=== PATIENT | male | born 1975 | race Caucasian/White ===

== ENCOUNTER 2020-12-22 05:57 | Inpatient (IN) | payer MEDICAID ==
[~2020-12-22] VITALS: Ht 180.3 cm; Wt 69.9 kg
[2020-12-22] VITALS (45 sets, daily range): BP systolic 86–153; BP diastolic 47–97
--- NOTE | 2020-12-22 08:20 | NUR ---
chart review. pt new admit from [facility], covid +. ct scan and surgery consult rt possible acute appendix. he on vent, unable to visit with him. will cont following as needed for dc needs. discussed during am rounds
[2020-12-22 08:59] LABS: ABSOLUTE NEUTROPHILS 18.7 thou/uL (1.4-8.2); BASOPHILS 0.1 % (0.0-2.0); HEMOGLOBIN 13.2 gm/dL (14.0-18.0); LYMPHOCYTES 3.2 % (24.0-44.0); MCH 30.5 pg (26.0-34.0); MCHC 33.9 g/dL (28.0-37.0); MCV 89.7 fL (80.0-100.0); MONOCYTES 1.7 % (1.0-8.0); PLATELET COUNT 406 thou/uL (150-400); RBC 4.35 mil/uL (4.50-6.00); RDW 13.3 % (10.5-14.5); WBC 19.7 thou/uL (4.0-11.0)
[2020-12-22 09:04] LABS: BE(vivo) -6.9 mmol/L (-2 to +3); HCO3 21.9 mmol/L (22.0-26.0); PCO2 57.3 mmHg (35.0-45.0); PO2 83.8 mmHg (80.0-100.0); pH 7.201 (7.360-7.450); sO2 93.8 % (92.0-98.0)
[2020-12-22 09:17] LABS: CALCIUM 7.3 mg/dL (8.5-10.1); CREATININE 1.6 mg/dL (0.7-1.3); POTASSIUM 4.5 mmol/L (3.5-5.1)
[2020-12-22 09:23] LABS: ALBUMIN 2.1 g/dL (3.4-5.0); TOTAL BILIRUBIN 0.7 mg/dL (0.2-1.0); TOTAL PROTEIN 6.4 g/dL (6.4-8.2)
[2020-12-22 09:35] LABS: APTT 36.5 Seconds (24.5-32.8); INR 1.03; PROTIME 11.2 Seconds (9.3-11.4)
--- NOTE | 2020-12-22 11:19 | NUR ---
PT ARRIVED TO THE UNIT VIA EMS FROM [facility] ACCOMPANIED BY EMS WORKERS. PT WAS DIAPHORETIC UPON ARRIVAL, STILL CONTINUING TO BE SO, ARRIVED ON 6MEQ OF POTASSIUM, WHICH IS OFF NOW PER pH AND POTASSIUM LEVEL, AND 5 OF LEVO, WHICH HAS BEEN RESTARTED UNDER [facility] AND RUNNING AT 1. TWO BELONGINGS BAG PRESENT W/ PT, RN HAS NOT SORTED THROUGH IT IS NOT PRIORITY AT THIS TIME. FAMILY MEMBER LEE YULIANA RN PROVIDED UPDATES REGARDING STARTING SEPSIS PROTOCOL AND GENERAL SURGERY CONSULT. PT SEEN BY // - PER MD HERNANDEZ, PT TO GO TO SURGERY SOMETIME TODAY. PROCALCITONIN IS HIGH AT THIS TIME. CVP HAS BEEN STARTED, ABX TX INITIATED WELL. CURRENTLY ON AC24 VT450 PEEP10 100%FIO2 PER [facility]ANNER SHRUTI WANG'S NOTES, PT INTUBATED THEN CENTRAL LINE/OGT/ETT VERIFIED AT 0558 THERE. RN WILL UPDATE NEEDED
[2020-12-22 15:07] LABS: CALCIUM 7.3 mg/dL (8.5-10.1); CREATININE 1.4 mg/dL (0.7-1.3); POTASSIUM 4.1 mmol/L (3.5-5.1)
[2020-12-22 16:00] LABS: BE(vivo) -5.1 mmol/L (-2 to +3); HCO3 21.6 mmol/L (22.0-26.0); PCO2 46.4 mmHg (35.0-45.0); PO2 152.6 mmHg (80.0-100.0); sO2 98.7 % (92.0-98.0)
[2020-12-22 16:01] LABS: pH 7.285 (7.360-7.450)
[2020-12-22 18:16] LABS: URINE BILIRUBIN NEGATIVE (Negative); URINE BLOOD NEGATIVE (Negative); URINE CLARITY CLEAR; URINE COLOR YELLOW; URINE GLUCOSE-RANDOM* NEGATIVE (Negative); URINE KETONES NEGATIVE (Negative); URINE LEUKOCYTES-REFLEX NEGATIVE (Negative); URINE NITRITE-REFLEX NEGATIVE (Negative); URINE PROTEIN (DIPSTICK) 1+ (Negative); URINE SPECIFIC GRAVITY >= 1.030 (1.005-1.035); URINE UROBILINOGEN 0.2 E.U./dl (0.2-1.0)
[2020-12-22 18:22] LABS: SQUAMOUS None Seen /LPF (0-3)
[2020-12-22 18:23] LABS: BACTERIA-REFLEX 1-9 Few /HPF (None Seen); CASTS None Seen /LPF (None Seen); CRYSTALS None Seen /LPF (None Seen); URINE RBC None Seen /HPF (NONE SEEN); URINE WBC-REFLEX 0-5 Rare /HPF (0-5)
[2020-12-22 18:32] LABS: CALCIUM 7.7 mg/dL (8.5-10.1); CREATININE 1.4 mg/dL (0.7-1.3)
[2020-12-22 21:57] LABS: CALCIUM 7.6 mg/dL (8.5-10.1); CREATININE 1.3 mg/dL (0.7-1.3); POTASSIUM 3.8 mmol/L (3.5-5.1)
[2020-12-23] VITALS (7 sets, daily range): BP systolic 87–129; BP diastolic 49–90
[2020-12-23 04:26] LABS: DIRECT BILIRUBIN 1.6 mg/dL (<0.1-0.2); PHOSPHORUS 3.4 mg/dL (2.5-4.9)
[2020-12-23 04:30] LABS: ALBUMIN 1.8 g/dL (3.4-5.0); CALCIUM 7.7 mg/dL (8.5-10.1); CREATININE 1.3 mg/dL (0.7-1.3); POTASSIUM 3.7 mmol/L (3.5-5.1); TOTAL BILIRUBIN 1.8 mg/dL (0.2-1.0); TOTAL PROTEIN 6.1 g/dL (6.4-8.2)
[2020-12-23 04:37] LABS: ABSOLUTE NEUTROPHILS 14.8 thou/uL (1.4-8.2); BASOPHILS 0.2 % (0.0-2.0); HEMATOCRIT 35.1 % (42.0-52.0); HEMOGLOBIN 11.8 gm/dL (14.0-18.0); LYMPHOCYTES 3.3 % (24.0-44.0); MCH 30.2 pg (26.0-34.0); MCHC 33.6 g/dL (28.0-37.0); MCV 89.8 fL (80.0-100.0); MONOCYTES 2.9 % (1.0-8.0); PLATELET COUNT 410 thou/uL (150-400); POLYS 93.6 % (36.0-66.0); RBC 3.91 mil/uL (4.50-6.00); RDW 13.7 % (10.5-14.5); WBC 15.8 thou/uL (4.0-11.0)
[2020-12-23 04:47] LABS: FIBRINOGEN > 860 mg/dL (210-360); INR 1.09; PROTIME 11.8 Seconds (9.3-11.4)
[2020-12-23 07:09] LABS: HIV ANTIBODY Non Reactive (Non Reactive)
[2020-12-23 07:47] LABS: BE(vivo) -3.5 mmol/L (-2 to +3); HCO3 21.5 mmol/L (22.0-26.0); PCO2 38.6 mmHg (35.0-45.0); pH 7.363 (7.360-7.450); sO2 96.7 % (92.0-98.0)
[2020-12-23 09:40] LABS: CREATININE 1.2 mg/dL (0.7-1.3); POTASSIUM 3.5 mmol/L (3.5-5.1)
--- NOTE | 2020-12-23 15:10 | NUR ---
PT ADMITTED RELATED TO ACUTE APPENDICITIS, RESPIRATORY FAILURE. PT WAS TRANSFERED FROM [facility]. PT IS INTUBATED AND SEDATED. PT UNDERWENT LAP APPENDECTOMY AND NOW HAS KIARRA DRAIN IN PLACE. PT IS ON IV ZOSYN. CM CALLED AND SPOKE WITH PT'S GIRLFRIEND SIMRAN ROMAN . SHE INDICATED THAT SHE IS HIS GF AND MOTHER OF THEIR TWO YOUND CHILDREN ALMOST 2 AND 4 MONTHS. SHE INDICATED THEY RESIDE IN A 3RD FLOOR APARTMENT WITH 2 FLIGHTS OF STEPS TO ENTER. SHE INDCATED THAT PT HAD BEEN INDEPDENENT WITH GAIT AND ADLS LAB AIDE. SHE INDICATED THAT PT IS CURRENTLY UNEMPLOYED WITH NO PCP OR INSURANCE. SHE INDICATED THAT PT'S BROTHER KRISTAN SHOULD BE ABLE TO GET MEDICAL INFO RELATED TO PT BUT THAT SHE DOESN'T HAVE HIS PHONE NUMBER. SHE STATED THAT PT'S FATHER RECENTLY PASSED AND THAT PT'S MOTHER IN IN A FACILITY WITH COGNITIVE IMPAITMENT. KRISTAN IS PT'S MOTHER'S DPOA. CM FOLLOWING REGARDING DC PLANNING.
--- NOTE | 2020-12-23 18:06 | PATH ---
[facility] [address] [place] [address] PATHOLOGY RPT PROCEDURE Name: BARTOLOME RAHMAN Room #: 240-P ADM IN M.R.#: [id number] Admission: 12/22/20 Date of : 79 Discharge: Report #: [id number] Path Case #: [id number] [facility] Accession Number: [id number] . 01 Material submitted: . appendix - APPENDIX . 01 Clinical history: . COVID APPENDICITIS LAPAROSCOPIC APPENDECTOMY POST-OP DIAGNOSIS SAME PRE-OP DIAGNOSIS . 02 Diagnosis: Appendix, appendectomy: - Marked acute/purulent appendicitis associated with acute serositis. ([facility]; 12/23/2020) QMS 12/23/2020 1340 Local . 02 Electronically signed: . Yuliya Skinner MD, Pathologist NPI- [id number] . 01 Gross description: . Fixative: Formalin Labeled: "Bartolome Rahman and appendix". Appendix length: 6.0cm Appendix diameter: 0.4-0.6 cm Mesoappendix: 0.2 cm Proximal margin: 0.6 cm Serosa: Previously open mottled lama-brown with adherent white-yellow purulent material Mucosa: Mottled lama-brown Fecal material: Loose to compact lama-brown Cut surface: Mottled lama-brown Luminal diameter: 0.6 cm Perforation: Not present Lesions/abnormalities: Mottled lama-brown cut surfaces A1-Proximal margin (inked red) and entire distal tip, bisected A2- Mid appendix (3 random sections) ([facility]; 12/22/2020) [facility] 12/23/2020 1339 Local . 02 Pathologist provided ICD-10: K35.80, K65.8 . 02 CPT . [address] [address] PATHOLOGY RPT PROCEDURE Name: BARTOLOME RAHMAN Room #: 240-P [facility] IN .R.#: [id number] Admission: 12/22/20 Date of : 79 Discharge: Report #: [id number] Path Case #: [id number] Specimen Comment: A courtesy copy of this report has been sent to [phone] Specimen Comment: [phone] Specimen Comment: Report sent to / DR TROTTER Performed at: 01 [facility] [address], [place], [place] [id number] MD Tolu Garcia MD Phone: [phone] Performed at: [address] [id number] MD Yuliya Skinner MD Phone: [phone]
[2020-12-24] VITALS (26 sets, daily range): BP systolic 100–156; BP diastolic 60–97
--- NOTE | 2020-12-24 01:25 | NUR ---
PT VOMITED AT APPROX 0030 AND 0120 WITH AGITATION AND COUGHING. VOMIT CONSISTED OF TUBE FEED LIKE LIQUID. PATIENT IN LINE SUCTIONED IMMEDIATELY AFTER VOMITING EPISODE. NO SECRETRIONS NOTED. TF STOPPED AT APPROX 0100 AND PATIENT PLACED TO LIS.
[2020-12-24 05:11] LABS: HEMATOCRIT 36.7 % (42.0-52.0); HEMOGLOBIN 12.4 gm/dL (14.0-18.0); MCH 31.1 pg (26.0-34.0); MCHC 33.8 g/dL (28.0-37.0); MCV 92.1 fL (80.0-100.0); PLATELET COUNT 480 thou/uL (150-400); RBC 3.98 mil/uL (4.50-6.00); RDW 13.9 % (10.5-14.5); WBC 19.9 thou/uL (4.0-11.0)
[2020-12-24 05:15] LABS: D-DIMER 33.98 ug/mLFEU (0.19-0.50); FIBRINOGEN > 860 mg/dL (201-437); PROTIME 10.9 Seconds (10.5-12.1)
[2020-12-24 05:26] LABS: DIRECT BILIRUBIN 1.7 mg/dL (<0.1-0.2); PHOSPHORUS 3.1 mg/dL (2.5-4.9)
[2020-12-24 05:41] LABS: ALBUMIN 1.9 g/dL (3.4-5.0); CALCIUM 8.1 mg/dL (8.5-10.1); CREATININE 1.4 mg/dL (0.7-1.3); POTASSIUM 4.2 mmol/L (3.5-5.1); TOTAL BILIRUBIN 2.2 mg/dL (0.2-1.0); TOTAL PROTEIN 6.6 g/dL (6.4-8.2)
[2020-12-24 05:53] LABS: BE(vivo) -3.1 mmol/L (-2 to +3); HCO3 22.5 mmol/L (22.0-26.0); PCO2 42.4 mmHg (35.0-45.0); PO2 66.2 mmHg (80.0-100.0); pH 7.343 (7.360-7.450); sO2 92.1 % (92.0-98.0)
[2020-12-24 06:42] LABS: ABSOLUTE NEUTROPHILS 19.1 thou/uL (1.4-8.2)
[2020-12-24 06:43] LABS: ANISOCYTOSIS 1+; PLATELET ESTIMATE INCREASED; POIKILOCYTOSIS 1+
[2020-12-24 11:17] LABS: CALCIUM 7.9 mg/dL (8.5-10.1); CREATININE 1.3 mg/dL (0.7-1.3); POTASSIUM 4.6 mmol/L (3.5-5.1)
--- NOTE | 2020-12-24 19:24 | NUR ---
ASSUMED CARE 0700..0745 PT RESTLESS, AGITATED ATTEMPTING TO PULL SELF OUT OF BED. PRN FENT GIVEN Q2 THROUGHOUT SHIFT FOR AGITATION. 02 DESAT THROUGH AM FI02, AND PEEP INCREASED. HERI FRANCIS. RR INCRESED THROUGHOUT SHIFT, APPEARED IMPROVED W/PRN FENTANYL. DC PROPOFOL AND TITRATED, VERSED ADDED AND TITRATED. 1800 NOTICED PT BECOMING MORE DIAPHORETIC, TEMP 102. DR. SERGO FRANCIS. ATTEMPTED TO PAGE ID FOR FEVER.. DISCONNECTED W/ANSWERING SERVICE. PT NOT PROGRESSING IN PLAN OF CARE.
[2020-12-25] VITALS (23 sets, daily range): BP systolic 90–128; BP diastolic 50–86
[2020-12-25 01:51] LABS: URINE BILIRUBIN NEGATIVE (Negative); URINE BLOOD TRACE (Negative); URINE CLARITY CLOUDY; URINE COLOR ORANGE; URINE GLUCOSE-RANDOM* NEGATIVE (Negative); URINE KETONES NEGATIVE (Negative); URINE LEUKOCYTES-REFLEX NEGATIVE (Negative); URINE NITRITE-REFLEX NEGATIVE (Negative); URINE PROTEIN (DIPSTICK) 3+ (Negative); URINE SPECIFIC GRAVITY >= 1.030 (1.005-1.035)
[2020-12-25 02:00] LABS: BACTERIA-REFLEX 1-9 Few /HPF (None Seen); COARSE GRANULAR CASTS 4-10 Moderate /LPF (None Seen); CRYSTALS None Seen /LPF (None Seen); FINE GRANULAR CASTS 0-3 Few /LPF (None Seen); MUCUS 0-3 Light strn/LPF (None Seen); SQUAMOUS 0-3 Few /LPF (0-3); URINE RBC 1-2 Rare /HPF (NONE SEEN); URINE WBC-REFLEX 0-5 Rare /HPF (0-5)
[2020-12-25 03:34] LABS: ABSOLUTE NEUTROPHILS 13.5 thou/uL (1.4-8.2); BASOPHILS 0.8 % (0.0-2.0); EOSINOPHILS 0.2 % (0.0-3.0); HEMATOCRIT 35.5 % (42.0-52.0); HEMOGLOBIN 11.7 gm/dL (14.0-18.0); LYMPHOCYTES 3.4 % (24.0-44.0); MCH 31.9 pg (26.0-34.0); MCHC 32.8 g/dL (28.0-37.0); MONOCYTES 3.9 % (1.0-8.0); POLYS 91.7 % (36.0-66.0); RBC 3.66 mil/uL (4.50-6.00); RDW 14.6 % (10.5-14.5); WBC 14.7 thou/uL (4.0-11.0)
[2020-12-25 03:43] LABS: ALBUMIN 1.7 g/dL (3.4-5.0); CALCIUM 7.9 mg/dL (8.5-10.1); CREATININE 1.7 mg/dL (0.7-1.3); TOTAL BILIRUBIN 2.1 mg/dL (0.2-1.0); TOTAL PROTEIN 5.9 g/dL (6.4-8.2)
[2020-12-25 04:05] LABS: POTASSIUM 5.7 mmol/L (3.5-5.1)
[2020-12-25 04:14] LABS: MCV 97.1 fL (80.0-100.0); PLATELET COUNT 224 thou/uL (150-400)
[2020-12-25 05:43] LABS: BE(vivo) -3.4 mmol/L (-2 to +3); HCO3 23.4 mmol/L (22.0-26.0); PO2 102.8 mmHg (80.0-100.0); sO2 97.1 % (92.0-98.0)
[2020-12-25 05:45] LABS: pH 7.296 (7.360-7.450)
--- NOTE | 2020-12-25 18:41 | NUR ---
ASSUMED CARE AT 0700. VENT WEANING BY RT. FIO2 WEANED FROM 100% TO 50%. PEEP WEANED FROM 14 TO 10. AGITATION AND TACHYPNEA DURING ORAL CARE AND POSITION CHANGES. 150 MLS OUT OF KIARRA DRAIN. NG REMAINS TO LIS WITH 100 MLS OUT. VITAL SIGNS STABLE. GIRLFRIEND TOLD NOC SHIFT NURSE THAT PATIENT IS METH USER. SIGNIFICANT OTHER SIMRAN UPDATED OVER THE PHONE THIS MORNING AND AFTERNOON. BROTHER UPDATED OVER THE PHONE.
[2020-12-25 19:11] LABS: BE(vivo) 0.6 mmol/L (-2 to +3); HCO3 25.9 mmol/L (22.0-26.0); PO2 79.1 mmHg (80.0-100.0); pH 7.388 (7.360-7.450); sO2 95.5 % (92.0-98.0)
[2020-12-26] VITALS (30 sets, daily range): BP systolic 124–176; BP diastolic 86–119
[2020-12-26 04:21] LABS: BE(vivo) -1.2 mmol/L (-2 to +3); HCO3 23.5 mmol/L (22.0-26.0); PCO2 39.6 mmHg (35.0-45.0); PO2 92.1 mmHg (80.0-100.0); pH 7.392 (7.360-7.450)
[2020-12-26 06:40] LABS: ALBUMIN 1.6 g/dL (3.4-5.0); CALCIUM 7.7 mg/dL (8.5-10.1); CREATININE 1.7 mg/dL (0.7-1.3); DIRECT BILIRUBIN 2.2 mg/dL (<0.1-0.2); POTASSIUM 4.9 mmol/L (3.5-5.1); TOTAL BILIRUBIN 2.7 mg/dL (0.2-1.0); TOTAL PROTEIN 5.8 g/dL (6.4-8.2)
--- NOTE | 2020-12-26 08:30 | NUR ---
ASSUMMED CARE OF THIS PATIENT FROM THE NIGHT NURSE AT 0700. PATIENT REMAINS INTUBATED AND SEDATED ON THE COOLING BLANKET. VERSED WEANED. FIO2 WEANED BY RT O2 SAT IS 98%
[2020-12-26 09:13] LABS: T-SPOT.TB Negative
--- NOTE | 2020-12-26 09:20 | NUR ---
SIMRAN CALLED IN AND UPDATED ON PATIENT'S STATUS.
--- NOTE | 2020-12-26 16:40 | NUR ---
discussed during am rounds and los, remains on vent. not able to visit with his sig other. no anticipated dc over the weekend. will cont following over the weekend.
--- NOTE | 2020-12-26 16:57 | NUR ---
PATIENT IS PROGRESSING SLOWLY TOWARDS OUTCOME GOALS FIO2 WEANED TO 35%. BP REMAINS ELEVATED, LABATAOL GIVEN PRN. NGT WITH MINIMAL DRAINAGE, ABD IS SOFT TO PALPATION WITH OCC RARE HYPOACTIVE BOWEL SOUND. SEDATION CONTINUES, VERSED DECREASED AND FENTANYL INCREASED FOR BP MANAGEMENT.
[2020-12-27] VITALS (52 sets, daily range): BP systolic 122–182; BP diastolic 83–124
[2020-12-27 03:35] LABS: ALBUMIN 1.7 g/dL (3.4-5.0); CALCIUM 7.7 mg/dL (8.5-10.1); CREATININE 1.4 mg/dL (0.7-1.3); PHOSPHORUS 3.4 mg/dL (2.6-4.7); POTASSIUM 4.1 mmol/L (3.5-5.1); TOTAL PROTEIN 6.2 g/dL (6.4-8.2)
[2020-12-27 03:37] LABS: TOTAL BILIRUBIN 3.6 mg/dL (0.2-1.0)
--- NOTE | 2020-12-27 06:55 | NUR ---
ASSUMED CARE AT 1900. PT W/BORDERLINE TO HIGH TEMPS, GAVE TYLENOL SUPPOSITORY ONCE AND REPOSITIONED/DECREASED TEMP OF COOLING PAD. GAVE FULL BATH AND CHANGED OUT ALL SUCTION CANNISTERS/TUBING, SCDs, BP CUFF, AND LINENS. ELEVATED BP OVERNIGHT, OBTAINED ONE TIME ORDER FOR LASIX FROM DR. LIRIANO; CONTINUED TO BE ELEVATED, OBTAINED IVP HYDRALAZINE FROM RICHARD BRADSHAW OVERNIGHT, WHICH CAUSED THE BEST IMPROVEMENT IN BP. PT WOULD FLUTTER EYES/TRY TO OPEN THEM AND MOVE ARMS SLIGHTLY WHEN NOT IN RESTRAINTS. NO OTHER CONCERNS, WILL CONTINUE TO MONITOR.
--- NOTE | 2020-12-27 21:21 | NUR ---
spoke with brother jane ascencio ok;
[2020-12-28] VITALS (44 sets, daily range): BP systolic 123–158; BP diastolic 77–104
--- NOTE | 2020-12-28 00:10 | NUR ---
CALL TO DR. LIRIANO, PT WAKES EASILY WITH ANY CARES, RR UP TO 33 AND TV UP TO 1.3L, EYES OPEN AND MOVING. ON 100MCG FENTANYL, 10MG VERSED, MAX PRECEDEX. REPORTED LIVER ENZYMES. WAS ORDERED TO GIVE MAX FENT ACCORDING TO COVID PROTOCOL, CALL TO PHARMACY, SHE STATES WE MAY RUN FENTANYL AT 200MCG/HR FOR COVID+ VENTS.
[2020-12-28 04:57] LABS: HEMATOCRIT 38.5 % (42.0-52.0); HEMOGLOBIN 13.2 gm/dL (14.0-18.0); MCH 32.5 pg (26.0-34.0); MCHC 34.3 g/dL (28.0-37.0); MCV 94.8 fL (80.0-100.0); PLATELET COUNT 236 thou/uL (150-400); RBC 4.06 mil/uL (4.50-6.00); RDW 13.8 % (10.5-14.5); WBC 13.1 thou/uL (4.0-11.0)
[2020-12-28 05:09] LABS: ALBUMIN 1.6 g/dL (3.4-5.0); CALCIUM 7.6 mg/dL (8.5-10.1); CREATININE 0.9 mg/dL (0.7-1.3); DIRECT BILIRUBIN 2.5 mg/dL (<0.1-0.2); PHOSPHORUS 3.3 mg/dL (2.5-4.9); POTASSIUM 4.3 mmol/L (3.5-5.1); TOTAL BILIRUBIN 3.8 mg/dL (0.2-1.0); TOTAL PROTEIN 5.8 g/dL (6.4-8.2)
[2020-12-28 05:25] LABS: D-DIMER 20.25 ug/mLFEU (0.19-0.50); INR 1.48; PROTIME 15.8 Seconds (10.5-12.1)
[2020-12-28 05:55] LABS: ABSOLUTE NEUTROPHILS 12.6 thou/uL (1.4-8.2)
[2020-12-28 05:56] LABS: PLATELET ESTIMATE NORMAL
--- NOTE | 2020-12-28 06:20 | NUR ---
PT MORE CALM AFTER INCREASING FENTANYL, ABLE TO TURN, DO ORAL CARE AND GIVE A BATH WITHOUT INAPPROPRIATE AGITATION. TITRATING DOWN SLOWLY PT TOLERATES FOR APPROPRIATE SEDATION. BP BETTER CONTROLLED THROUGHOUT SHIFT, X1 DOSE HYDRALAZINE GIVEN AND SCHEDULED METOPROLOL. CVP 8-13. ADEQUATE URINE OP. SR 60'S, PERRLA, LUNGS CLEAR/DIM, GREEN BILE OUT OF OG, LINE BECAME CLOGGED REQUIRING FLUSH AND CHANGE OF TUBING. AFEBRILE.
[2020-12-28 10:30] LABS: BE(vivo) 6.1 mmol/L (-2 to +3); HCO3 29.9 mmol/L (22.0-26.0); PCO2 40.2 mmHg (35.0-45.0); PO2 55.6 mmHg (80.0-100.0); sO2 91.2 % (92.0-98.0)
--- NOTE | 2020-12-28 19:57 | NUR ---
1600 UPDATED PT GIRL FRIEND. EMOTIONAL SUPPORT GIVEN. DR LIRIANO TOLD PT FAMILY WANTED TO TALK TO HIM.'
--- NOTE | 2020-12-28 20:14 | NUR ---
CALL FROM ONI KHALIL DPOA. VERY PLEASANT BUT VERY DISTRESSED, STATING SHE HAD BEEN PROMISED A CALL FROM DR. TROTTER FOR 3 DAYS, WITH NO CALL AT ALL. THIS WAS COMMUNICATED TO THIS RN FROM DAY RN THAT SHE HAS ASKED DR. TROTTER TO CALL SIMRAN ON 12/27 AND WOULD FOLLOW UP AGAIN DURING THE DAY TODAY. THIS RN APOLOGIZED TO SIMRAN FOR THE DISTRESS CAUSED AND REITERATED THAT A NEW PARTNER WOULD BE COVERING TOMORROW AND THAT THIS RN WOULD BE SURE TO PASS ALONG NEED FOR DR CALL TO FAMILY. THIS ISSUE WAS ALSO ELEVATED TO DIE CLEANER TO MAKE SURE THAT A DR WILL FOLLOW UP WITH FAMILY. ANSWERED ALL QUESTIONS WITHIN SCOPE OF PRACTICE, REASSURANCE PROVIDED THAT WHILE PT IS SICK HE IS RECIEVING THE BEST CARE AND ALL NURSING STAFF IS ADVOCATING FOR HIM.
--- NOTE | 2020-12-28 23:26 | NUR ---
SPOKE WITH SIMRAN, GAVE UPDATE, EXPLAINED CURRENT INTERVENTIONS FOR SEPSIS, BRIEF OVERVIEW OF VENTILATOR, AND MEDS FOR HTN. SIMRAN STATES PT HAS HISTORY OF HTN AND "IS SUPPOSED TO TAKE MEDICINE BUT DOESNT." SHE KNOWS PT WAS DRUG FREE FOR 9 DAYS A FEW WEEKS AGO WHEN THE WHOLE FAMILY HAD COVID, BUT WAS UNCERTAIN IF HE REMAINED CLEAN THE DAY BEFORE HE CAME TO THE HOSPITAL. 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 FATHER HAS HX OF DIABETES WITH RELATED FOOT AMPUTATION, MOTHER HAS DEMENTIA AND IS UNABLE TO PROVIDE FURTHER HISTORY. ALSO STATES THAT PT HAS WOKEN UP CHOKING "ON STOMACH ACID OR SOMETHING" AND WAS CONCERNED ABOUT PT LYING IN BED. EXPLAINED PROTOCOLS FOR VAP PREVENTION AND THE OG TO LIS. EXPLAINED THAT WITH COVID ITS IMPORTANT TO TAKE EACH DAY IT COMES, THIS RN NOT ABLE TO ANSWER QUESTION OF "HOW LONG WILL IT TAKE FOR HIM TO GET BETTER." AND TO ASK DRS. MESSAGE SENT TO CM REGARDING COORDINATION WITH DR REA AND REASSURED THAT WE WOULD GET A DR TO CALL HER TOMORROW.
[2020-12-29] VITALS (24 sets, daily range): BP systolic 92–172; BP diastolic 62–117
[2020-12-29 05:08] LABS: ALBUMIN 1.2 g/dL (3.4-5.0); CALCIUM 6.1 mg/dL (8.5-10.1); CREATININE 1.1 mg/dL (0.7-1.3); DIRECT BILIRUBIN 2.5 mg/dL (<0.1-0.2); POTASSIUM 3.7 mmol/L (3.5-5.1); TOTAL BILIRUBIN 4.1 mg/dL (0.2-1.0); TOTAL PROTEIN 4.3 g/dL (6.4-8.2)
--- NOTE | 2020-12-29 05:56 | NUR ---
PT WAKES EASILY WITHOUT LIGHTENING SEDATION, OPENS EYES AND BEGINS TO BREATH LARGE VOLUMES 1-1.3L, RR UP TO 33, DOES NOT FOLLOW COMMANDS OR APPEAR TO TRACK RN. SUBQ AIR FELT IN BL NECK, HAS NOT EXTENDED DOWN CHEST,ARMS OR BACK. BL BREATH SOUNDS EQUAL, SR IN 60'S, SATS>96%, SMALL AMT GREEN BILE FROM OG, BP STABLE NOT REQUIRING PRNS.
--- NOTE | 2020-12-29 11:51 | NUR ---
ONGOING ASSESSMENT: PT CONT ON VENT. NPO. PRESENT RESTLESS. PLAN IS OG TUBE TO LIS. CM SPK W/PT G/F SIMRAN WHO EXPRESSED FINANCIAL CONCERNS D/T PT BEING THE BREAD WINNER. CM SUGGESTED SIMRAN REACH OUT TO HER UTILITY PROVIDERS/[employer] TO ASK ABOUT [employer] RELEASE FUNDING. SIMRAN AGREED. ALSO, STATED SHE HAD MONEY SAVED TO PURCHASE A CALL SO SHE COULD AFFORD THE RENT FOR A LITTLE WHILE. CM TO CONT TO FOLLOW.
[2020-12-29 11:56] LABS: INR 1.1; PROTIME 11.9 Seconds (10.5-12.1)
--- NOTE | 2020-12-29 14:09 | NUR ---
ASSUMED CARE AT 0700. PATIENT'S SIGNIFICANT OTHER, SIMRAN, CALLED AND WAS SPOKEN TO FROM [phone] AND SHE WAS UPDATED AND EDUCATED ON THE PATIENT'S CONDITION AND PLAN OF CARE.
[2020-12-30] VITALS (25 sets, daily range): BP systolic 95–165; BP diastolic 53–106
[2020-12-30 05:38] LABS: PHOSPHORUS 2.4 mg/dL (2.5-4.9)
[2020-12-30 05:55] LABS: ALBUMIN 1.8 g/dL (3.4-5.0); CALCIUM 7.7 mg/dL (8.5-10.1); CREATININE 0.9 mg/dL (0.7-1.3); MAGNESIUM 1.7 mg/dL (1.8-2.4); POTASSIUM 4.6 mmol/L (3.5-5.1); TOTAL BILIRUBIN 5.2 mg/dL (0.2-1.0); TOTAL PROTEIN 5.3 g/dL (6.4-8.2)
--- NOTE | 2020-12-30 06:29 | NUR ---
ASSUMED CARE AT 1900. PT BECOMES VERY AGITATED/RESTLESS WHENEVER STAFF IN THE ROOM AND PROVIDING CARES, TAKES SIGNIFICANT AMOUNT OF TIME FOR HIM TO RELAX AGAIN, AND CAUSES BP TO GO UP. MAXED ON VERSED AND PRECEDEX, AND INCREASED FENTANYL TO 150 MCG/HR WITH LITTLE SUCCESS IN SEDATING PT. SPOKE TO DR. LIRIANO APPROX 0110, OBTAINED ORDER TO START PROPOFOL. SINCE STARTING PROPOFOL, PT MUCH LESS RESTLESS AND CALMS DOWN FASTER AFTER STAFF FINISH CARES, AND HAVE BEGUN TITRATING BOTH VERSED AND FENTANYL DOWN. CONTINUES TO HAVE HYPOACTIVE BOWEL SOUNDS; SMALL-MEDIUM OUTPUT AROUND KIARRA DRAIN, CHANGED GAUZE. AFEBRILE OVERNIGHT. NO OTHER CONCERNS, WILL CONTINUE TO MONITOR.
--- NOTE | 2020-12-30 16:26 | NUR ---
PATIENT PROGRESSING. PATIENT WEANED 6 PEEP ON VENTILATOR. CONTINUES 50% FIO2. CONTINUES ON PROPOFOL, VERSED, PRECEDEX, AND FENTANYL. WEANING FENTANYL OFF AND SWTICHING TO HYDROMORPHONE FOR SEDATION. NO BM. YET. TUBE FEEDINGS STARTED TODAY. VITAL HP.
[2020-12-31] VITALS (23 sets, daily range): BP systolic 89–168; BP diastolic 50–113
[2020-12-31 00:06] LABS: HAV IgM AB (ANTI-HAV IgM) Negative (Negative); HEP B SURFACE Ab(ANTI-HBS Non Reactive (()); HEPATITIS B SURFACE AG Negative (Negative); HEPATITIS C VIRUS AB <0.1 (0.0-0.9)
[2020-12-31 06:15] LABS: ALBUMIN 1.7 g/dL (3.4-5.0); CALCIUM 7.9 mg/dL (8.5-10.1); CREATININE 0.8 mg/dL (0.7-1.3); MAGNESIUM 1.9 mg/dL (1.8-2.4); PHOSPHORUS 3.3 mg/dL (2.5-4.9); TOTAL BILIRUBIN 4.2 mg/dL (0.2-1.0); TOTAL PROTEIN 5.1 g/dL (6.4-8.2)
--- NOTE | 2020-12-31 06:31 | NUR ---
ASSUMED CARE AT 1900. TITRATED PROPOFOL OFF AT 2056, AND FENTANYL OFF AT 2238. PT COMFORTABLY SEDATED W/DILAUDID, VERSED, AND PRECEDEX, BUT STILL AROUSEABLE TO STIMULI, ABLE TO TITRATE VERSED DOWN SOMEWHAT. TUBE FEED AT 10 ML/HR OVERNIGHT, DID NOT INCREASE RATE RESIDUAL CONTINUED TO CLIMB OVERNIGHT. 65 ML OUT OF KIARRA DRAIN. ABD CONTINUES TO BE DISTENDED BUT SOFT. AFTER GIVING 0600 SUPPOSITORY, PT INCREASINGLY RESTLESS, HAD TO INCREASE VERSED BACK UP; BP AND PULSE UP AND O2 SAT IN LOW 90'S. WILL CONTINUE TO MONITOR.
--- NOTE | 2020-12-31 13:58 | NUR ---
ASSUMED CARE AT 0700. PATIENT'S SIGNIFICANT OTHER, SIMRAN, CALLED AND WAS SPOKEN TO FROM [phone] AND SHE WAS UPDATED AND EDUCATED ON THE PATIENT'S CONDITION AND PLAN OF CARE. PATIENT PLACED ON CPAP FROM [phone].
--- NOTE | 2020-12-31 22:47 | NUR ---
ASSUMED CARE AT 1900. UPON ASSESSMENT, PT NOTED TO BE EXTREMELY DIAPHORETIC. VS WERE STABLE. CHECKED A BLOOD GLUCOSE IN CASE OF HYPOGLYCEMIA, BUT IT WAS STABLE AT 136. DISCUSSED W/DR. CASH AT BEDSIDE, NO NEW ORDERS. ABOUT 2199, GAVE UPDATE TO DR. HERNANDEZ, INFORMING CURRENT GASTRIC RESIDUAL IS 125, NO STOOL YET; NO NEW ORDERS. WILL CONTINUE TO MONITOR.
[2021-01-01] VITALS (58 sets, daily range): BP systolic 62–177; BP diastolic 28–115
[2021-01-01 05:38] LABS: ALBUMIN 1.8 g/dL (3.4-5.0); CREATININE 0.9 mg/dL (0.7-1.3); MAGNESIUM 1.7 mg/dL (1.8-2.4); PHOSPHORUS 2.7 mg/dL (2.5-4.9); TOTAL BILIRUBIN 3.8 mg/dL (0.2-1.0); TOTAL PROTEIN 5.6 g/dL (6.4-8.2)
[2021-01-01 08:28] LABS: BE(vivo) 4.3 mmol/L (-2 to +3); HCO3 29.5 mmol/L (22.0-26.0); PO2 66.8 mmHg (80.0-100.0); pH 7.425 (7.360-7.450); sO2 93.6 % (92.0-98.0)
--- NOTE | 2021-01-01 11:13 | NUR ---
ON THE VENT, SEDATED BUT RESTLESS AND DOESN'T FOLLOW COMMANDS. ON DILUDID GTT FOR PAIN MANAGEMENT. TUBEFEEDING PER OGT AND CONTINUES TO HAVE MOD RESIDUALS. KIARRA DRAIN NOTED. PATIENT'S GIRLFRIEND CALLED AND WAS UPDATED. WILL CONTINUE WITH POC.
[2021-01-01 12:07] LABS: MITOCHONDRIAL ANTIBODY <20.0 Units (0.0-20.0)
[2021-01-01 15:08] LABS: SMOOTH MUSCLE ANTIBODY 9 Units (0-19)
--- NOTE | 2021-01-01 16:04 | NUR ---
chart review. discussed during am rounds and los. cont to requirer vent, nutritional support. 50 % with peep 6. spoke with sig jamar ascencio via phone call, she just wants to know outcome of ct scan of adb. i want to be the 1st to know when he is out of isolation so i can visit. we all had covid here in the past and i am ready to visit him"/sig jamar ascencio. cm passed on information to hospitalist to call sig other about ct scan results. no anticipated dc over the weekend. will cont following as needed for dc needs.
--- NOTE | 2021-01-01 19:16 | NUR ---
THIS AFTERNOON PATIENT CONTINUED TO THRASH AROUND, VERY RESTLESS AND WAS DESATURATING DESPITE MAX SEDATION AND PAIN MEDS. CALL PLACED TO DR. LIRIANO. STAT CHEST XRAY OBTAINED AND DR. LIRIANO CALLED WITH NEW VENT ORDERS, RT ART NOTIFIED, ONE TIME DOSE OF PHENOBARBITOL ADMINISTERED PER ORDER. PATIENT SOMEWHAT CALMER AT THIS TIME AND REPORT GIVEN TO SHRUTI BALTAZAR.
--- NOTE | 2021-01-01 22:09 | NUR ---
ASSUMED CARE OF PATIENT AT 1900. DR LIRIANO CALLED, ORDERED KETAMINE INFUSION. SIGNIFICANT OTHER CALLED FOR UPDATE. UPDATED ON NEW SEDATION MEDS AND NEED FOR 100% FIO2. SHE ADMITS THIS PATIENT IS A CHRONIC MET USER. WAS VERY CONCERNED HE WOULD NOT GET THE SAME CARE IF THE MEDICAL TEAM KNEW. EDUCATED HER ABOUT ICU STANDARDS, REASSURED HER HE WOULD CONTINUE TO GET CARE HE NEEDS. ALSO TRANSFERRED HER TO A [employer] PHONE, SHE WAS ABLE TO TALK TO HIM FOR ABOUT 30 MINUTES. BLOOD PRESSURE DROPPED BEFORE KETAMINE STARTED, LEVO RESTARTED, MONITORING VITALS VERY CLOSELY. NOT PROGRESSING TOWARDS POC GOALS.
[2021-01-02] VITALS (109 sets, daily range): BP systolic 67–166; BP diastolic 32–93
[2021-01-02 04:59] LABS: HEMATOCRIT 37.1 % (42.0-52.0); MCH 30.5 pg (26.0-34.0); MCHC 32.4 g/dL (28.0-37.0); PLATELET COUNT 493 thou/uL (150-400); RBC 3.95 mil/uL (4.50-6.00); RDW 13.6 % (10.5-14.5); WBC 28.8 thou/uL (4.0-11.0)
[2021-01-02 05:13] LABS: ALBUMIN 1.7 g/dL (3.4-5.0); CREATININE 1.2 mg/dL (0.7-1.3); POTASSIUM 4.7 mmol/L (3.5-5.1); TOTAL PROTEIN 5.4 g/dL (6.4-8.2)
[2021-01-02 05:15] LABS: TOTAL BILIRUBIN 5.2 mg/dL (0.2-1.0)
[2021-01-02 05:28] LABS: BE(vivo) 1.4 mmol/L (-2 to +3); HCO3 27.2 mmol/L (22.0-26.0); PCO2 47.8 mmHg (35.0-45.0); PO2 65.9 mmHg (80.0-100.0); pH 7.373 (7.360-7.450); sO2 92.4 % (92.0-98.0)
[2021-01-02 05:34] LABS: ABSOLUTE NEUTROPHILS 26.2 thou/uL (1.4-8.2)
--- NOTE | 2021-01-02 08:03 | NUR ---
PATIENT REMAINS ON THE VENT. KETAMINE, DILAUDID, PRECEDEX, VERSED GTT FOR SEDATION. HYPOTENSIVE OTHERWISE VSS. LEVOPHED FOR BP. TMAX 99.6. GARSIA WITH GOOD U/O. NOT PROGRESSING TOWARDS POC GOAL.
--- NOTE | 2021-01-02 11:32 | NUR ---
PT IS NOT PROGRESSING TOWARDS DISCHARGE AT THIS TIME, PT HAD AN INCREASE NEED FOR OXYGENATION IN THE PAST 24HOURS CURRENTLY MAXED OUT FIO2 ON THE VENT, KETAMINE WAS STARTED LAST NIGHT FOR RESTLESSNESS, PT APPEARS TO BE RESTED, WAKING UP AND OPENING EYES INTERMITTENTLY, NO THRASHING OF MOVEMENTS OBSERVED. HR IS ELEVATED AROUND 110s, TUBE FEEDING HAS BEEN INCREASED TO 40CC/HR GOAL, 175CC/140 RESIDUAL NOTED RESPECTIVELY. GOAL OF CARE TODAY AFTER DISCUSSING WITH PHYSICIAN/PHARMACIST IS TO TITRATE BACK ON SEDATIVES. HAS BEEN UPDATED REGARDING CURRENT STATUS, REMINDED PT IS VERY SICK AND AT A CRITICAL STATE, INFORMED TO CALL IF NEEDED AND RN WILL CALL WITH UPDATES WHEN APPROPERIATE. MONITORING THIS PT CLOSELY, WILL UPDATE NEEDED
[2021-01-02 17:32] LABS: BE(vivo) 5.7 mmol/L (-2 to +3); HCO3 31.8 mmol/L (22.0-26.0); PCO2 52.2 mmHg (35.0-45.0); pH 7.403 (7.360-7.450); sO2 84.4 % (92.0-98.0)
[2021-01-02 17:33] LABS: PO2 49.4 mmHg (80.0-100.0)
[2021-01-02 17:50] LABS: HEMATOCRIT 39.6 % (42.0-52.0); HEMOGLOBIN 12.6 gm/dL (14.0-18.0); MCH 29.4 pg (26.0-34.0); MCV 92.1 fL (80.0-100.0); PLATELET COUNT 471 thou/uL (150-400); RDW 13.9 % (10.5-14.5); WBC 29.3 thou/uL (4.0-11.0)
[2021-01-02 17:59] LABS: CALCIUM 8.1 mg/dL (8.5-10.1); POTASSIUM 4.8 mmol/L (3.5-5.1)
[2021-01-02 18:15] LABS: ABSOLUTE NEUTROPHILS 28.7 thou/uL (1.4-8.2); METAMYELOCYTES 1 %; SCHISTOCYTES RARE
[2021-01-02 18:16] LABS: POLYCHROMASIA SLIGHT; TARGET CELLS OCCASIONAL; TEARDROPS FEW
[2021-01-02 18:31] LABS: ALBUMIN 1.7 g/dL (3.4-5.0); DIRECT BILIRUBIN 3.2 mg/dL (<0.1-0.2); TOTAL BILIRUBIN 4.1 mg/dL (0.2-1.0)
[2021-01-02 22:26] LABS: BE(vivo) 2.8 mmol/L (-2 to +3); HCO3 32.8 mmol/L (22.0-26.0); sO2 77.3 % (92.0-98.0)
[2021-01-02 22:27] LABS: PCO2 81.5 mmHg (35.0-45.0); PO2 51.2 mmHg (80.0-100.0); pH 7.222 (7.360-7.450)
[2021-01-02 23:29] LABS: HEMATOCRIT 32.7 % (42.0-52.0); HEMOGLOBIN 10.8 gm/dL (14.0-18.0); PLATELET COUNT 414 thou/uL (150-400); RDW 13.6 % (10.5-14.5)
[2021-01-02 23:36] LABS: CALCIUM 7.6 mg/dL (8.5-10.1); CREATININE 1.5 mg/dL (0.7-1.3); POTASSIUM 4.7 mmol/L (3.5-5.1)
[2021-01-02 23:46] LABS: ALBUMIN 1.7 g/dL (3.4-5.0); TOTAL BILIRUBIN 4.3 mg/dL (0.2-1.0); TOTAL PROTEIN 4.9 g/dL (6.4-8.2); TROPONIN-I 0.23 ng/mL (<0.06)
[2021-01-03] VITALS (48 sets, daily range): BP systolic 70–159; BP diastolic 38–100
[2021-01-03 00:30] LABS: ABSOLUTE NEUTROPHILS 23.5 thou/uL (1.4-8.2)
--- NOTE | 2021-01-03 03:21 | NUR ---
REPORT RECEIVED. PATIENT REMAINS ON THE VENT. HYPOTENSIVE. LEVOPHED, VASOPRESIN, HOSSEIN FOR HYPOTENSION. DR LIRIANO AT THE BEDSIDE. ARTLINE PLACED BY DR LIRIANO. REMAINS HYPOXIC. DR LIRIANO AWARE. AFEBRILE. GARSIA IN PLACE WITH GOOD U/O. FLOW TRAC INITIATED AT APPROX [address]IRIANO ORDERS. PT NOT PROGRESSING TOWARDS POC GOALS.
[2021-01-03 04:52] LABS: HEMATOCRIT 33.5 % (42.0-52.0); MCH 30.8 pg (26.0-34.0); MCHC 32.7 g/dL (28.0-37.0); MCV 94.2 fL (80.0-100.0); PLATELET COUNT 386 thou/uL (150-400); RBC 3.56 mil/uL (4.50-6.00); WBC 33.2 thou/uL (4.0-11.0)
[2021-01-03 05:02] LABS: ALBUMIN 2.3 g/dL (3.4-5.0); CALCIUM 8.3 mg/dL (8.5-10.1); CREATININE 1.3 mg/dL (0.7-1.3); POTASSIUM 4.9 mmol/L (3.5-5.1); TOTAL PROTEIN 5.8 g/dL (6.4-8.2)
[2021-01-03 05:04] LABS: D-DIMER 8.51 ug/mLFEU (0.19-0.50); INR 1.49; PROTIME 15.9 Seconds (10.5-12.1)
[2021-01-03 05:05] LABS: TOTAL BILIRUBIN 5.3 mg/dL (0.2-1.0)
[2021-01-03 05:51] LABS: ABSOLUTE NEUTROPHILS 30.5 thou/uL (1.4-8.2); METAMYELOCYTES 4 %
[2021-01-03 07:07] LABS: BE(vivo) 0.5 mmol/L (-2 to +3); HCO3 27.3 mmol/L (22.0-26.0); PCO2 54.1 mmHg (35.0-45.0); PO2 88.9 mmHg (80.0-100.0); pH 7.321 (7.360-7.450)
--- NOTE | 2021-01-03 09:05 | EKG ---
[address] [address] ELECTROCARDIOGRAM REPORT Name: JULIO CESAR RAHMAN Room #: 240-P ADM IN M.R.#: [id number] Admission: 12/22/20 Attend Phys: Ayla Cho MD Discharge: Date of : 79 Report #: [id number] [facility] Test Date: 2021-01-02 Test Time: 18:29:27 Pat Name: JULIO CESAR RAHMAN Department: Room: 240 P Gender: M [employer]: [place] : 1975 Requested By: Ayla Cho Order Number: [id number] MD: Sherman Hunt Measurements Intervals [place] Rate: 141 P: 76 [place]: 107 QRS: 59 QRSD: 80 T: 13 QT: 284 QTc: 435 Interpretive Statements Sinus tachycardia Left atrial enlargement Left ventricular hypertrophy Baseline wander in lead(s) V1 No previous ECG available for comparison Electronically Signed On 01-03-2021 9:04:53 CDT by Sherman Hunt [email or web address] <ELECTRONICALLY SIGNED> By: Sherman Hunt MD, [facility] 01/03/21 0904 1829 28 Sherman Hunt MD, FACC /EPI
--- NOTE | 2021-01-03 12:12 | 2DMMODE ---
[facility] [place] [address] 2 D/M-MODE ECHOCARDIOGRAM Name: KAISER RAHMANLotus Coates Room #: 240-P ADM IN M.R.#: [id number] Admission: 12/22/20 Attend Phys: Ayla Cho MD Discharge: Date of : 79 Report #: [id number] THIS REPORT FOR: cc: DOROTHEA - Ashley family physician/PCP DOROTHEA - Ashley family physician/PCP Sherman Hunt MD [facility] ~ ADDENDUM APPROVED REPORT Study performed: 01/03/2021 10:18:52 EXAM: Comprehensive 2D, Doppler, and color-flow Echocardiogram Patient Location: In-Patient Room #: 240 Status: routine BSA: 2.17 HR: 78 bpm Rhythm: NSR Other Information Study Quality: Adequate Indications 2D Dimensions RVDd: 35.32 mm IVSd: 11.53 (7-11mm) LVOT Diam: 25.08 (18-24mm) LVDd: 49.83 mm PWd: 10.68 (7-11mm) Ascending Ao: 40.44 (22-36mm) LVDs: 31.35 (25-40mm) Left Atrium: 27.58 (27-40mm) Aortic Root: 36.70 mm LV Single Plane 4CH: 68.37 % Volumes Left Atrial Volume (Systole) Single Plane 4CH: 25.79 mL Single Plane 2CH: 19.28 mL Aortic Valve AoV Peak Basil.: 1.25 m/s AO Peak Gr.: 6.29 mmHg AO Mean Gr.: 3.29 mmHg AO V2 Mean: 0.82 m/s [facility] [address] [place] [address] 2 D/M-MODE ECHOCARDIOGRAM Name: JULIO CESAR RAHMAN Room #: 240-P [facility] IN [facility]#: [id number] Admission: 12/22/20 Attend Phys: Aminata Dover Discharge: Date of : 79 Report #: [id number] AO V2 VTI: 24.83 cm Mitral Valve E/A Ratio: 0.9 MV Decel. Time: 258.85 ms MV E Max Basil.: 0.91 m/s MV A Basil.: 0.96 m/s MV PHT: 75.07 ms Pulmonary Vein P Vein S: 0.61 m/s P Vein A: 0.30 m/s P Vein D: 0.58 m/s P Vein A Dur.: 152.2 msec P Vein S/D Ratio: 1.05 Tricuspid Valve TR Peak Basil.: 2.56 m/s TR Peak Gr.: 26.12 mmHg Left Ventricle The left ventricle is normal size. Mild concentric left ventricular hypertrophy. The left ventricular systolic function is normal. The left ventricular ejection fraction is within the normal range. LVEF is 60-65%. The left ventricular diastolic function is normal. Right Ventricle The right ventricle is normal size. The right ventricular systolic function is normal. Atria The left atrium size is normal. The right atrium size is normal. Aortic Valve The aortic valve is normal in structure. Trace aortic regurgitation. There is no aortic valvular stenosis. Mitral Valve The mitral valve is normal in structure. Trace mitral regurgitation. No evidence of mitral valve stenosis. Tricuspid Valve The tricuspid valve is normal in structure. Trace tricuspid regurgitation. Estimated PAP 41 mmHg. Pulmonic Valve The pulmonary valve is normal in structure. Trace pulmonic [facility] [address] [place] [address] 2 D/M-MODE ECHOCARDIOGRAM Name: JULIO CESAR RAHMAN Room #: 240-P [facility] IN M.R.#: [id number] Admission: 12/22/20 Attend Phys: Aminata Dover Discharge: Date of : 79 Report #: [id number] regurgitation. Great Vessels The aortic root is normal in size. IVC is dilated and collapses <50% with inspiration. Pericardium There is no pericardial effusion. <Conclusion> Normal left ventricular size with mild concentric hypertrophy Contrast was used for better endocardial visualization Ejection fraction 60-65% Normal right ventricle size/function Normal atrial size Color-flow Doppler study was performed of the aortic/mitral/tricuspid/pulmonary valve Trace aortic/mitral valve insufficiency Trace tricuspid valve sufficiency Pulmonary systolic pressure estimated 41 mmHg No pericardial effusion Normal aortic root size. <ELECTRONICALLY SIGNED> By: Sherman Hunt MD, [facility] 01/03/211211 121 121 Sherman Hunt MD, [facility] /INF
--- NOTE | 2021-01-03 13:41 | NUR ---
CONSULTED TO PLACE A 2ND CENTRAL LINE FOR THIS UNSTABLE PATIENT NEEDING ADDITIONAL IV GTT AND INTERNAL MONITERING. PLACED PER MEDICAL NECESSITY IN THE LEFT IJ PER HOSPITAL POLICY AFTER A BEDSIDE TIMEOUT WAS COMPLETED. LINE IS 30CM. A STAT CHEST XRAY WAS ORDERED AFTER PLACEMENT- LINE LINE WAS WITHDRAWN 2CM TO PLACE AT THE CAJ. LINE SECURED AND RELEASED FOR USE
--- NOTE | 2021-01-03 19:19 | NUR ---
significant other able to come and sit with patient for 2 minutes with permission from dr. chavira. agreement signed by significant other, myself and dr. montenegro that she would don all appropriate ppe and sit with patient for [address] montenegro contacted brother alan and he was allowed to facetime for 10 minutes. patient continues on levophed, vasopressin, and sedation.
[2021-01-04] VITALS (43 sets, daily range): BP systolic 114–164; BP diastolic 65–103
[2021-01-04 05:37] LABS: HEMATOCRIT 28.2 % (42.0-52.0); HEMOGLOBIN 9.1 gm/dL (14.0-18.0); MCH 30.3 pg (26.0-34.0); MCHC 32.2 g/dL (28.0-37.0); MCV 94.3 fL (80.0-100.0); RBC 2.99 mil/uL (4.50-6.00); RDW 14.1 % (10.5-14.5); WBC 19.8 thou/uL (4.0-11.0)
[2021-01-04 05:41] LABS: PLATELET COUNT 297 thou/uL (150-400)
[2021-01-04 05:54] LABS: ALBUMIN 2.1 g/dL (3.4-5.0); CALCIUM 8.4 mg/dL (8.5-10.1); CREATININE 0.8 mg/dL (0.7-1.3); MAGNESIUM 1.6 mg/dL (1.8-2.4); POTASSIUM 4.6 mmol/L (3.5-5.1); TOTAL BILIRUBIN 2.3 mg/dL (0.2-1.0); TOTAL PROTEIN 5.6 g/dL (6.4-8.2)
[2021-01-04 09:08] LABS: ABSOLUTE NEUTROPHILS 18.6 thou/uL (1.4-8.2)
[2021-01-04 09:09] LABS: ANISOCYTOSIS 1+
--- NOTE | 2021-01-04 14:50 | NUR ---
PT IS SLOWLY PROGRESSING TOWARDS DISCHARGE, FIO2 HAS BEEN DECREASING, CURRENT PRESSOR ON BOARD IS VASOPRESSIN AT THIS TIME W/ PT TOLERATING THERAPY. PT WAS SEEN BY GI THIS MORNING WELL . CHANGES TO GI STATUS; PT HAD A VOMIT OVERNIGHT THAT LOOKED LIKE FECAL MATTER, GI WAS NOTIFIED FIRST THING IN THE MORNING. FLOTRACK REMAINS ON & CONSISTENT. SEDATION APPEARS TO BE BETTER MANAGED, PT HAS BEEN RESTLESS MUCH TWO SHIFTS AGO. MOTTLING AT THE FEET LOOKS BETTER, THOUGH BLUE COLORATION OF THE TOES ARE SEVERE AND THIS RN MARKED THE OUTLINE/BORDER OF THE COLOR TO TRACK THE PROGRESS. PULSES ARE PRIMARILY THREADY THROUGHOUT EXCEPT THE L RADIAL. LUNG SOUNDS ARE CLEARER COMPARED TO 01/02. CURRENTLY RUNNING PRECEDEX/VERSED/VASOPRESSIN PT TOLERATING OKAY. SIGNIFICANT OTHER SIMRAN WAS NOTIFIED, UPDATED ON LOWERING OF THE VENTILATOR VALUES, WHEN ASKED IT PT IS BETTER TODAY, RN STATED THAT OUR POSITION ISN'T TO TELL THE PROGNOSIS OF THE PT BUT ONLY PROVIDE PCLINICAL PICTURES. RN REMINDED PT'S SO TO CALL WHENEVER NEEDED
[2021-01-05] VITALS (33 sets, daily range): BP systolic 89–176; BP diastolic 46–98
[2021-01-05 05:56] LABS: HEMATOCRIT 30.4 % (42.0-52.0); HEMOGLOBIN 9.8 gm/dL (14.0-18.0); MCHC 32.3 g/dL (28.0-37.0); MCV 92.9 fL (80.0-100.0); RBC 3.27 mil/uL (4.50-6.00); RDW 14.4 % (10.5-14.5)
--- NOTE | 2021-01-05 06:00 | NUR ---
REMAINS INTUBATED AND SAEDATED WITH PRECEDEX DILAUDID aND VERSED GTTS BILAT TOES MORE BLISTERED AND CYANOTIC. 2000 CC UO THIS SHIFT. 250 CC KIARRA DRAIN SIMUS RHYTHM. ENHANSED PRECAUTIONS FOR COVID 19. NOT PROGRESSING TOWARTD GOALS.
[2021-01-05 06:08] LABS: ALBUMIN 1.7 g/dL (3.4-5.0); CALCIUM 8.1 mg/dL (8.5-10.1); CREATININE 0.7 mg/dL (0.7-1.3); POTASSIUM 4.5 mmol/L (3.5-5.1); TOTAL BILIRUBIN 1.8 mg/dL (0.2-1.0); TOTAL PROTEIN 5.3 g/dL (6.4-8.2)
--- NOTE | 2021-01-05 11:47 | NUR ---
chart review. discussed during los and am rounds. remains on vent, possible start TPN for nutritional support. dvt right arm. bedside nurse spoke with girlfriend sonu to provide updates. will cont following as needed for dc needs.
[2021-01-05 11:55] LABS: ALBUMIN 1.8 g/dL (3.4-5.0); CALCIUM 8.3 mg/dL (8.5-10.1); CREATININE 0.8 mg/dL (0.7-1.3); MAGNESIUM 1.8 mg/dL (1.8-2.4); PHOSPHORUS 2.2 mg/dL (2.6-4.7); POTASSIUM 4.1 mmol/L (3.5-5.1); TOTAL BILIRUBIN 1.8 mg/dL (0.2-1.0); TOTAL PROTEIN 5.4 g/dL (6.4-8.2)
--- NOTE | 2021-01-05 22:40 | NUR ---
Udated pt's Jacqueline (significant other) on pt's condition. started TPN feed and no significant events. continue to monitor
[2021-01-06] VITALS (34 sets, daily range): BP systolic 96–184; BP diastolic 54–101
[2021-01-06 03:54] LABS: BE(vivo) 7.8 mmol/L (-2 to +3); PCO2 50.1 mmHg (35.0-45.0); PO2 68.3 mmHg (80.0-100.0); pH 7.437 (7.360-7.450)
[2021-01-06 05:50] LABS: HEMATOCRIT 22.4 % (42.0-52.0); MCH 29.4 pg (26.0-34.0); MCHC 32.2 g/dL (28.0-37.0); MCV 91.4 fL (80.0-100.0); RBC 2.45 mil/uL (4.50-6.00); RDW 14.2 % (10.5-14.5); WBC 24.3 thou/uL (4.0-11.0)
[2021-01-06 06:03] LABS: ALBUMIN 1.2 g/dL (3.4-5.0); CREATININE 0.5 mg/dL (0.7-1.3); MAGNESIUM 1.2 mg/dL (1.8-2.4); PHOSPHORUS 1.7 mg/dL (2.5-4.9); POTASSIUM 3.2 mmol/L (3.5-5.1); TOTAL BILIRUBIN 1.3 mg/dL (0.2-1.0); TOTAL PROTEIN 3.9 g/dL (6.4-8.2)
[2021-01-06 06:04] LABS: HEMOGLOBIN 7.2 gm/dL (14.0-18.0)
[2021-01-06 06:14] LABS: CALCIUM 5.7 mg/dL (8.5-10.1)
[2021-01-06 10:58] LABS: HEMOGLOBIN 10.3 gm/dL (14.0-18.0)
[2021-01-06 11:56] LABS: ALBUMIN 1.6 g/dL (3.4-5.0); CALCIUM 7.5 mg/dL (8.5-10.1); CREATININE 0.8 mg/dL (0.7-1.3); MAGNESIUM 1.7 mg/dL (1.8-2.4); PHOSPHORUS 1.9 mg/dL (2.5-4.9); TOTAL PROTEIN 5.2 g/dL (6.4-8.2)
[2021-01-06 11:59] LABS: POTASSIUM 4.2 mmol/L (3.5-5.1)
[2021-01-07] VITALS (30 sets, daily range): BP systolic 93–165; BP diastolic 53–111
--- NOTE | 2021-01-07 01:28 | NUR ---
ASSUMED CARE OF PATIENT AT 1900. FIO2 TITRATED DOWN APPROPRIATE. REMAINS SEDATED, NO BP SUPPORT NEEDED. SIGNIFICANT OTHER CALLED THIS RN AT 2330. UPDATE GIVEN. ASSURED HER THAT PER HOSPITAL PROTOCOL ONCE HE IS OUT OF ISOLATION HE COULD HAVE VISITORS. SIMRAN ASKING IF EITHER PATIENT OLDER SON OR BROTHER HAD FACETIME HIM. THIS RN HAD NO KNOWLEDGE IF THIS HAD OCCURED SO NO INFORMATION WAS GIVEN. PROGRESSING VERY SLOWLY TOWARDS POC GOALS.
[2021-01-07 04:33] LABS: CALCIUM 7.9 mg/dL (8.5-10.1); CREATININE 0.8 mg/dL (0.7-1.3); MAGNESIUM 1.8 mg/dL (1.8-2.4); PHOSPHORUS 2.7 mg/dL (2.5-4.9); POTASSIUM 4.4 mmol/L (3.5-5.1)
[2021-01-07 04:39] LABS: HEMATOCRIT 29.2 % (42.0-52.0); HEMOGLOBIN 9.6 gm/dL (14.0-18.0); MCH 30.3 pg (26.0-34.0); MCHC 32.9 g/dL (28.0-37.0); MCV 92.1 fL (80.0-100.0); RBC 3.17 mil/uL (4.50-6.00); RDW 14.5 % (10.5-14.5); WBC 19.9 thou/uL (4.0-11.0)
--- NOTE | 2021-01-07 10:37 | NUR ---
ASSUMED CARE AT 0700. PATIENT'S SIGNIFICANT OTHER, SIMRAN, CALLED FROM [phone] AND SHE WAS UPDATED AND EDUCATED ON THE PATIENT'S CONDITION AND PLAN OF CARE.
--- NOTE | 2021-01-07 11:56 | NUR ---
on-going assessment: CM REVIEWED CHART. PT REMAINS CRITICAL AND CONTINUES TO BE SEDATED ON THE VENT. GI FOLLOWING PATIENT AND POSSIBLE NEED OF TRACH. PT REMAINS ON IV ANBX, WBC TRENDING DOWN. PT IS ON TPN AND START TF WHEN ABLE. CM WILL CONTINUE TO FOLLOW TO ASSIST NEEDED.
--- NOTE | 2021-01-07 13:31 | NUR ---
DR. LOERA PAGED AT [phone]
[2021-01-07 13:46] LABS: HEMOGLOBIN 10.9 gm/dL (14.0-18.0); MCH 29.9 pg (26.0-34.0); MCV 90.6 fL (80.0-100.0); RBC 3.64 mil/uL (4.50-6.00); RDW 14.6 % (10.5-14.5); WBC 23.8 thou/uL (4.0-11.0)
[2021-01-07 13:52] LABS: BE(vivo) 4.7 mmol/L (-2 to +3); PCO2 41.6 mmHg (35.0-45.0); PO2 51.9 mmHg (80.0-100.0); pH 7.461 (7.360-7.450); sO2 88.5 % (92.0-98.0)
[2021-01-08] VITALS (31 sets, daily range): BP systolic 89–211; BP diastolic 45–130
[2021-01-08 04:45] LABS: HEMATOCRIT 27.7 % (42.0-52.0); HEMOGLOBIN 9.1 gm/dL (14.0-18.0); MCH 30.3 pg (26.0-34.0); MCV 91.7 fL (80.0-100.0); RBC 3.02 mil/uL (4.50-6.00); RDW 14.5 % (10.5-14.5); WBC 15.2 thou/uL (4.0-11.0)
[2021-01-08 05:00] LABS: BE(vivo) 7.3 mmol/L (-2 to +3); HCO3 31.3 mmol/L (22.0-26.0); PCO2 41.7 mmHg (35.0-45.0); pH 7.493 (7.360-7.450); sO2 97.1 % (92.0-98.0)
[2021-01-08 05:18] LABS: CALCIUM 7.7 mg/dL (8.5-10.1); CREATININE 0.8 mg/dL (0.7-1.3); MAGNESIUM 2.2 mg/dL (1.8-2.4); PHOSPHORUS 2.4 mg/dL (2.5-4.9); POTASSIUM 4.5 mmol/L (3.5-5.1)
[2021-01-08 09:43] LABS: ALBUMIN 1.4 g/dL (3.4-5.0); DIRECT BILIRUBIN 1.3 mg/dL (<0.1-0.2); TOTAL BILIRUBIN 2.5 mg/dL (0.2-1.0); TOTAL PROTEIN 5.1 g/dL (6.4-8.2)
--- NOTE | 2021-01-08 12:21 | NUR ---
AT APPX 1000, SPOKE W/ PT'S GIRLFRIEND, SIMRAN, WHO PT LIVES WITH AND SHARES TWO SMALL SONS WITH. SIMRAN PROVIDED THE PASSCODE AND WANTED AN UPDATE ON PT CONDITION. SIMRAN VOICED CONCERN ABOUT WHO WOULD SIGN CONSENTS FOR POSSIBLE TRACH/PEG AND ALSO ABOUT PT'S CONFIDENTIAL STATUS AND WHO COULD CALL AND GET INFORMATION. CASE MANAGEMENT CONSULTED AND ISSUE DISCUSSED W/ GISELL, WHO STATED THAT DR. TROTTER WAS INVOLVED AND AWARE. PASSCODE CHANGED TO [phone] AND GIVEN TO SIMRAN, WHO AT THIS POINT, IS THE ONLY PERSON WHO HAS THE CODE. REASSURANCES AND EMOTIONAL SUPPORT PROVIDED. WILL CONTINUE TO FOLLOW CLOSELY.
--- NOTE | 2021-01-08 16:04 | NUR ---
cm visit with bedside nurse rt cm consult on decision making and who can be providing information to. see note from 12/23, sig other sonu stated ok to talk with brother alan in visit with cm team. will cont following as needed for dc needs. he remains on vent, nutritional support. discussed during los and am rounds, he has opened his eyes. no anticipated dc over the weekend. will cont following as needed for dc needs.
[2021-01-09] VITALS (43 sets, daily range): BP systolic 69–189; BP diastolic 36–123
[2021-01-09 05:07] LABS: HEMATOCRIT 25.6 % (42.0-52.0); HEMOGLOBIN 8.3 gm/dL (14.0-18.0); MCHC 32.5 g/dL (28.0-37.0); MCV 92.3 fL (80.0-100.0); RBC 2.78 mil/uL (4.50-6.00); RDW 14.8 % (10.5-14.5); WBC 10.9 thou/uL (4.0-11.0)
[2021-01-09 05:26] LABS: CALCIUM 7.5 mg/dL (8.5-10.1); CREATININE 0.7 mg/dL (0.7-1.3); PHOSPHORUS 3.6 mg/dL (2.5-4.9); POTASSIUM 4.7 mmol/L (3.5-5.1)
--- NOTE | 2021-01-09 14:22 | NUR ---
ASSUMED CARE AT 0700. PATIENT'S SIGNIFICANT OTHER CALLED FROM [phone] AND SHE WAS UPDATED AND EDUCATED ON THE PATIENT'S CONDITION AND PLAN OF CARE.
--- NOTE | 2021-01-09 21:33 | NUR ---
2100: WHILE ASSESSING PT AND PASSING MEDS, PT BEGAN VOMITING WHAT APPEARED TO BE TUBE FEED INTO HIS ETT; DIFFICULT TO IN LINE SUCTION, SATS DROPPED TO LOW 80'S. INCREASED FIO2 TO 100%, CALLED RT TO CHANGE OUT TUBING CONNECTED TO ETT; CONTINUED TO SUCTION. PT VOMITED A TOTAL OF 3 TIMES; TUBE FEED STOPPED. ZOFRAN GIVEN. PER DR. LIRIANO, STAT CXR; PER DR. TORRES, OK TO STOP TUBE FEED/CONNECT TO LIS. ABOUT 200 ML IN THE OG SUCTION, MOSTLY DUENAS TUBE FEED, NOW A SLIGHT ORANGE BILE COLOR. RT GETTING FROTHY WHITE/PINK OUT OF SUCTION. INITIAL ASSESSMENT LUNG SOUNDS VERY COARSE WITH CRACKLES UPPER AND LOWER; AFTER VOMITING, LUNGS SOUNDS VERY DIMINISHED WITH MINIMAL EXPIRATORY NOISE ON THE RIGHT. WILL AWAIT CXR RESULTS.
[2021-01-10] VITALS (82 sets, daily range): BP systolic 63–181; BP diastolic 33–107
[2021-01-10 04:39] LABS: BE(vivo) 6.8 mmol/L (-2 to +3); HCO3 32.4 mmol/L (22.0-26.0); PCO2 53.6 mmHg (35.0-45.0); PO2 69.9 mmHg (80.0-100.0); pH 7.399 (7.360-7.450); sO2 93.7 % (92.0-98.0)
[2021-01-10 04:51] LABS: HEMATOCRIT 31.1 % (42.0-52.0); MCH 30.4 pg (26.0-34.0); MCHC 33.2 g/dL (28.0-37.0); MCV 91.3 fL (80.0-100.0); PLATELET COUNT 207 thou/uL (150-400); RDW 14.6 % (10.5-14.5); WBC 15.3 thou/uL (4.0-11.0)
[2021-01-10 04:52] LABS: HEMOGLOBIN 10.3 gm/dL (14.0-18.0)
[2021-01-10 05:05] LABS: MAGNESIUM 1.6 mg/dL (1.8-2.4)
[2021-01-10 05:07] LABS: ALBUMIN 1.7 g/dL (3.4-5.0); CALCIUM 7.5 mg/dL (8.5-10.1); CREATININE 0.9 mg/dL (0.7-1.3); POTASSIUM 4.5 mmol/L (3.5-5.1); TOTAL PROTEIN 5.8 g/dL (6.4-8.2)
[2021-01-10 05:40] LABS: TOXIC GRANULATION 2+
--- NOTE | 2021-01-10 11:00 | NUR ---
ASSUMMED CARE FROM THE NIGHT NURSE AT 0700 THIS AM. O2 WEANED TO 70%. PATIENT REMAINS SEDATED AND ON PRECEDEX WITH FENTANLY GIVEN X 1 FOR PAIN, NOW SEDATED. LEVOPHED WEANED BP MONITORED. MAG GIVEN PER TUBE FOR MAG LEVEL OF 1.6. PATIENT HAD A 23 BEAT RUN OF V TACH. DR LIRIANO AWARE AND THAT MAG WAS GIVEN. PATIENT REMAINS IN NSR.
--- NOTE | 2021-01-10 14:00 | NUR ---
DR TROTTER IN AT 1200 AND UPDATED ON PATIENT'S STATUS AND RUN OF V TACH. 1L OF NS INFUSED PER ORDER AND MAG SULFATE HUNG PER ORDER. LEVOPHED TAPPERED MAP IS GREATER THAN 65 MMHG. BLOOD CULTURES AND LACTIC ACID DRAWN. LACTIC ACID LEVEL LESS THAN 2.0 WILL CONTINUE TO MONITOR.
--- NOTE | 2021-01-10 14:45 | NUR ---
SPOKE WITH PATIENT'S S/OSIMRAN AND UPDATED HER ON PATIENT'S STATUS.
[2021-01-10 18:55] LABS: URINE BILIRUBIN NEGATIVE (Negative); URINE BLOOD 1+ (Negative); URINE CLARITY CLEAR; URINE COLOR YELLOW; URINE GLUCOSE-RANDOM* 3+ (Negative); URINE KETONES NEGATIVE (Negative); URINE LEUKOCYTES-REFLEX NEGATIVE (Negative); URINE NITRITE-REFLEX NEGATIVE (Negative); URINE PROTEIN (DIPSTICK) NEGATIVE (Negative); URINE UROBILINOGEN 0.2 E.U./dl (0.2-1.0)
--- NOTE | 2021-01-10 19:00 | NUR ---
PATIENT IS SLOWLY PROGRESSING BUT REMAINS CRITICAL. CONTINUE TO WEAN LEVOPHED ABP IS GREATER THAN 65MMHG. O2 WEANED TO 60% WITH SAT IN THE 90'S. PATIENT REMAINS SEDATED.
[2021-01-10 19:06] LABS: FINE GRANULAR CASTS 0-3 Few /LPF (None Seen); HYALINE CASTS 0-3 Few /LPF (None Seen); URINE RBC 3-10 Few /HPF (NONE SEEN)
[2021-01-10 19:07] LABS: SQUAMOUS 0-3 Few /LPF (0-3); URINE WBC-REFLEX 0-5 Rare /HPF (0-5)
[2021-01-10 19:08] LABS: CRYSTALS None Seen /LPF (None Seen)
[2021-01-11] VITALS (74 sets, daily range): BP systolic 81–188; BP diastolic 40–106
[2021-01-11 05:53] LABS: CALCIUM 7.4 mg/dL (8.5-10.1); CREATININE 0.6 mg/dL (0.7-1.3); MAGNESIUM 1.5 mg/dL (1.8-2.4); PHOSPHORUS 2.3 mg/dL (2.6-4.7); POTASSIUM 4.6 mmol/L (3.5-5.1)
--- NOTE | 2021-01-11 07:25 | NUR ---
Assummed care from the night nurse, Laila BAHENA. Patient remains intubated with Dilaudid, Versed and Precedex for sedation. Leavophed and Vasopressin continue. Tube feeding on hold with OG to LIS. TPN continues. Will continue to Monitor
--- NOTE | 2021-01-11 07:26 | NUR ---
ASSUMED CARE AT 1900. PT RESTLESS FIRST PART OF SHIFT, CAUSING BP TO GO UP; TITRATED PRESSORS TO KEEP MAP BETWEEN 60-80. SPOKE W/ S.Zarina KHALIL ABOUT 2300; GAVE EXTENSIVE UPDATE ON PT OVER THE LAST TWO DAYS, INCLUDING PREVIOUS NIGHT EPISODE OF VOMITING, LARGE AMOUNT OF RESP SECRETIONS, AND FEVERS, WELL BP MEDICATION NEEDS AND NEURO STATUS. SHE LOOKS FORWARD TO BEING ABLE TO VISIT ONCE HE IS OUT OF ISOLATION. MINIMAL OUTPUT FROM KIARRA DRAIN OVERNIGHT. CONTINUED TO HAVE GREEN-BROWN BILE FROM OG SUCTION, OCCASIONALLY SOME BLOOD PRESENT; BOWEL SOUNDS SLIGHTLY PRESENT LEFT SIDE, STILL NO BOWEL MOVEMENT. NO FURTHER CONCERNS, PT PROGRESSING POORLY TOWARDS GOALS.
--- NOTE | 2021-01-11 19:24 | NUR ---
PATIENT IS PROGRESSING SLOWLY TOWARDS OUTCOME GOALS EVIDENT BY VASOPRESSIN WEANED OFF. REMAINS ON LEVOPHED. SEDATION UNCHANGED. NO STOOLS OR EMESIS TODAY.
[2021-01-12] VITALS (82 sets, daily range): BP systolic 79–187; BP diastolic 40–106
[2021-01-12 04:39] LABS: BE(vivo) 4.3 mmol/L (-2 to +3); HCO3 29.5 mmol/L (22.0-26.0); PCO2 47.6 mmHg (35.0-45.0); PO2 104.7 mmHg (80.0-100.0); sO2 97.8 % (92.0-98.0)
[2021-01-12 04:52] LABS: ABSOLUTE NEUTROPHILS 5.9 thou/uL (1.4-8.2); BASOPHILS 0.5 % (0.0-2.0); EOSINOPHILS 0.2 % (0.0-3.0); HEMATOCRIT 22.7 % (42.0-52.0); LYMPHOCYTES 6.2 % (24.0-44.0); MCH 30.1 pg (26.0-34.0); MCHC 33.4 g/dL (28.0-37.0); MCV 90.2 fL (80.0-100.0); MONOCYTES 6.7 % (1.0-8.0); PLATELET COUNT 218 thou/uL (150-400); POLYS 86.4 % (36.0-66.0); RBC 2.52 mil/uL (4.50-6.00); RDW 14.4 % (10.5-14.5); WBC 6.8 thou/uL (4.0-11.0)
[2021-01-12 04:57] LABS: ALBUMIN 1.5 g/dL (3.4-5.0); CALCIUM 7.7 mg/dL (8.5-10.1); CREATININE 0.6 mg/dL (0.7-1.3); POTASSIUM 4.6 mmol/L (3.5-5.1); TOTAL PROTEIN 5.5 g/dL (6.4-8.2)
[2021-01-12 05:04] LABS: HEMOGLOBIN 7.6 gm/dL (14.0-18.0)
[2021-01-12 09:54] LABS: URINE POTASSIUM-RANDOM* 22.5 mmol/L
--- NOTE | 2021-01-12 10:49 | NUR ---
chart review. discussed during los. out of isolation. hx covid. he cont to require vent,tpn nutritional support. updates provided to sig other from bedside nurse. will cont following as needed for dc needs.
[2021-01-12 11:33] LABS: HEMOGLOBIN 8.7 gm/dL (14.0-18.0); MCH 30.2 pg (26.0-34.0); MCHC 33.7 g/dL (28.0-37.0); MCV 89.7 fL (80.0-100.0); RBC 2.9 mil/uL (4.50-6.00); RDW 14.2 % (10.5-14.5); WBC 10.3 thou/uL (4.0-11.0)
--- NOTE | 2021-01-12 16:49 | NUR ---
ASSUMED CARE AT 0700. PATIENT'S SIGNIFICANT OTHER, SIMRAN, IS IN THE ROOM VISITING WITH THE PATIENT AND SPOKE WITH DR. LIRIANO AND DR. CASH REGARDING THE PATIENT'S CONDITION AND PLAN OF CARE. PATIENT NOT PROGRESSING TOWARDS THE PLAN OF CARE EVIDENCED BY INCREASED OXYGEN DEMANDS AND INCREASED NEED FOR BP SUPPORT.
[2021-01-13] VITALS (50 sets, daily range): BP systolic 82–178; BP diastolic 45–124
[2021-01-13 04:40] LABS: BE(vivo) 4.5 mmol/L (-2 to +3); HCO3 29.7 mmol/L (22.0-26.0); PCO2 47.2 mmHg (35.0-45.0); PO2 87.6 mmHg (80.0-100.0); pH 7.416 (7.360-7.450); sO2 96.7 % (92.0-98.0)
[2021-01-13 04:49] LABS: HEMOGLOBIN 8.6 gm/dL (14.0-18.0)
[2021-01-13 04:58] LABS: HEMATOCRIT 25.2 % (42.0-52.0); MCV 91.2 fL (80.0-100.0); RBC 2.76 mil/uL (4.50-6.00); RDW 14.7 % (10.5-14.5); WBC 10.2 thou/uL (4.0-11.0)
[2021-01-13 05:12] LABS: ALBUMIN 1.7 g/dL (3.4-5.0); CALCIUM 7.9 mg/dL (8.5-10.1); CREATININE 0.7 mg/dL (0.7-1.3); POTASSIUM 4.1 mmol/L (3.5-5.1); TOTAL BILIRUBIN 1.3 mg/dL (0.2-1.0); TOTAL PROTEIN 5.9 g/dL (6.4-8.2)
[2021-01-13 05:15] LABS: PLATELET COUNT 356 thou/uL (150-400)
[2021-01-13 08:58] LABS: ABSOLUTE NEUTROPHILS 7.7 thou/uL (1.4-8.2); PLATELET ESTIMATE NORMAL
[2021-01-13 12:07] LABS: URINE OSMOLALITY* 512 (())
--- NOTE | 2021-01-13 12:21 | HC ---
[facility] [place] [address] CONSULTATION Name: JULIO CESAR RAHMAN Room #: 240-P [facility] IN M.R.#: [id number] Admission: 12/22/20 Attend Phys: Ayla Cho MD Discharge: Date of : 79 Report #: [id number] THIS REPORT FOR: cc: FAM - No family physician/PCP FAM - No family physician/PCP Primitivo Power MD ~ DOC #: [id number] Primitivo Power MD DATE OF SERVICE: 01/09/2021 WOUND CARE CONSULTATION PERSONAL PHYSICIAN: None on staff. CHIEF COMPLAINT: Ischemic toes. HISTORY OF PRESENT ILLNESS: This is a 45-year-old white male who is currently intubated and sedated in the ICU with COVID pneumonia as well as associated respiratory failure, recently had a perforated appendix with peritonitis and had underwent a laparoscopic appendectomy. The patient was in septic shock requiring multiple pressors and subsequently developed bluish discoloration of toes 1 through 4 on the right foot and 1 through 3 on the left foot with associated blisters. We have been asked to assist in the care of the toes at this time. Nursing staff does state no other associated wound on the patient. The patient himself once again is intubated and sedated, unable to give any history. PAST MEDICAL HISTORY: Significant for methamphetamine and alcohol dependence in the current respiratory failure secondary to COVID pneumonia. CURRENT MEDICATIONS: Multiple pressures have now been stopped. DRUG ALLERGIES: Unknown. SOCIAL HISTORY, FAMILY HISTORY, REVIEW OF SYSTEMS: Unable to obtain secondary to the patient is intubated and sedated. PHYSICAL EXAMINATION: VITAL SIGNS: Temperature 36.3, pulse 124. Respirations, the patient is on the ventilator. BP is 148/105. GENERAL: This is an intubated, sedated white male who is in no obvious distress. HEENT: Normocephalic, atraumatic. Mucous membranes are dry. Oral endotracheal tube is in place, nasogastric tubes in place. NECK: Without JVD. LUNGS: Diminished breath sounds heard throughout. [address] [address] CONSULTATION Name: LACEYJULIO CESAR M Room #: 240-[facility] IN M.R.#: [id number] Admission: 12/22/20 Attend Phys: Ayla Cho MD Discharge: Date of : 79 Report #: [id number] HEART: Tachycardic. ABDOMEN: Soft, nontender. Joss-Irby drain is in place. EXTREMITIES: Warm. Distal pulses are 2+ dorsalis pedis and 1+ posterior tibial. The patient's toes 1 through 4 on the right foot show purplish discoloration with associated intact blisters. The toes themselves do not appear to be cold to touch. On the left foot, the toes 1 through 3 have purplish discoloration with associated blisters, but are once again warm to touch. NEUROLOGIC: The patient is once again intubated and sedated. LABORATORY DATA: White count 10.9, hemoglobin 8.3, albumin 1.4. ASSESSMENT: 1. Ischemic changes to the toes on the right 1, 2, 3 and 4 and toes on the left 1, 2, 3, most likely secondary to prolonged use of intravenous pressor agents versus possible COVID toe reaction, however seeming less likely. 2. Acute respiratory failure with COVID pneumonia. 3. Generalized debility. 4. Protein calorie malnutrition -- severe with albumin 1.4. 5. History of alcohol and methamphetamine dependence. PLAN: At this time, we will start Betadine to all the toes that are affected twice daily. Continue with heel protectors at all times. The patient will be continued on the lower left surface given his significant debility, having turned every 2 hours. The patient will continue all other current medications. We will continue to follow the patient at this time. Primitivo Power MD TAS/STD/IQB <ELECTRONICALLY SIGNED> By: Primitivo Power MD 01/13/21 1221 1208 [id number] Primitivo Power MD /nt
[2021-01-13 13:08] LABS: UREA NITROGEN-RANDM URINE 713 mg/dL (Not Estab.)
--- NOTE | 2021-01-13 13:09 | NUR ---
Pt SO Becky at bedside, brought pictures of family to hang for pt to see.
[2021-01-13 14:33] LABS: MAGNESIUM 1.7 mg/dL (1.8-2.4); PHOSPHORUS 2.7 mg/dL (2.5-4.9)
[2021-01-14] VITALS (25 sets, daily range): BP systolic 107–171; BP diastolic 63–108
[2021-01-14 06:24] LABS: CALCIUM 8.3 mg/dL (8.5-10.1); CREATININE 0.7 mg/dL (0.7-1.3); MAGNESIUM 1.4 mg/dL (1.8-2.4); POTASSIUM 4.3 mmol/L (3.5-5.1)
--- NOTE | 2021-01-14 07:18 | NUR ---
Pt anxious/restless, following commands/nodding yes or no to questions. When asked if his abdomen hurt pt nodded yes. Currently on 8 of PEEP and 50% FiO2 sat 97%.
--- NOTE | 2021-01-14 13:29 | NUR ---
PT restless, moving/banging legs and feet on bed. Unable to extubate safely today, so Midaz gtt restarted at 5 mg/hr.
[2021-01-15] VITALS (121 sets, daily range): BP systolic 75–177; BP diastolic 40–102
--- NOTE | 2021-01-15 01:42 | NUR ---
2320 - PT HR 112. BP 107/75. 5 MG SCHED. IV METROPOLOL GIVEN OVER 10 MINS. 0001 - HR 80. BP 69/31. CUFF ADJUSTED AND BP RECHECKED. AT 0003 BP WAS 54/22. LEVOPHED ORDERED STAT FROM THE PHARMACY. PTS PRECEDEX, VERSED, AND HYDROMORPHONE STOPPED AT THIS TIME. 0010 - PT WENT BRADYCARDIC IN THE 30'S. PULSE WAS NEVER LOST. ATROPINE PULLED BUT WAS NOT NEEDED PTS HR RECOVERED TO THE 80'S ON HIS OWN. ALL SEDATION REMAINED OFF THROUGHOUT THIS PERIOD. 0012 - LEVOPHED STARTED FOR PRESSURE SUPPORT. DR. LIRIANO CALLED AND NOTIFIED OF THE EVENTS. NO ORDERS RECEIVED. WILL CONTINUE TO MONITOR PT CLOSELY. PT CURRENTLY RESTING COMFRTABLY AND LAYING CALMY IN BED WITH NO SEDATION ON. PT IS NO LONGER DIAPHORETIC, EASILY AROUSABLE WHEN NAME IS CALLED, ABLE TO SHAKE HIS HEAD APPROPRIATELY TO YES/NO QUESTIONS.
[2021-01-15 05:03] LABS: HEMATOCRIT 27.6 % (42.0-52.0); HEMOGLOBIN 9.4 gm/dL (14.0-18.0); MCH 30.8 pg (26.0-34.0); MCHC 34.2 g/dL (28.0-37.0); MCV 90.2 fL (80.0-100.0); RBC 3.06 mil/uL (4.50-6.00); RDW 14.8 % (10.5-14.5); WBC 12.4 thou/uL (4.0-11.0)
[2021-01-15 05:25] LABS: CALCIUM 8.4 mg/dL (8.5-10.1); CREATININE 0.7 mg/dL (0.7-1.3); POTASSIUM 3.9 mmol/L (3.5-5.1)
[2021-01-15 08:32] LABS: DIRECT BILIRUBIN 0.5 mg/dL (<0.1-0.2); MAGNESIUM 1.6 mg/dL (1.8-2.4); PHOSPHORUS 3.2 mg/dL (2.6-4.7); TOTAL BILIRUBIN 1.1 mg/dL (0.2-1.0); TOTAL PROTEIN 6.5 g/dL (6.4-8.2)
--- NOTE | 2021-01-15 10:51 | NUR ---
PICC LINE ORDER NOTED TO REPLACE 2 CENTRAL LINES THAT CONTINUE TO HAVE WET AND NONOCCLUSIVE DRESSINGS DUE TO THE PATIENT BEING DIAPHORETIC AND AN INCREASED AMOUNT OF ORAL SECREATIONS. PER THE ULTRASOUND REPORT THE RUE HAS OCCLUSIVE DVTS AND IS NOT A OPTION. SPOKE TO PETE BAHENA ABOUT OPTION FOR LUE PICC VS DVT. THIS PATIENT IS OFF DVT PROPHYLAXIS AT THIS TIME WHICH INCREASES THE RISK FOR A LUE DVT WITH PICC PLACEMENT. AWAITING PRIMARY TO ROUND TO DISCUSS OPTION ON PICC (RISK VS BENIFITS) AND OR TICC OPTION. I WILL AWAIT DR. PITTS RECOMMENDATION ON WHICH WOULD BE THE BETTER OPTION FOR THIS PATIENT
--- NOTE | 2021-01-15 14:01 | NUR ---
VASCULAR ACCESS NURSE SPOKE TO DR. CASH ABOUT LINE REPLACEMENT AND IT WAS DETERMINED A CENTRAL LINE WOULD BE PLACED TO REPLACE THE 2 PRIOR LINES. THIS WAS ALSO DISCUSSED WITH DR. LARIOS. A #6F TRIPLE LUMEN CENTRAL LINE WAS PLACED PER POLICY IN THE RIGHT JUGULAR. THE JUGULAR WAS DIFFICULT TO CANNULATE AND TOOK MULTIPLE ATTEMPTS THE VEIN WOULD COLLAPS WITH EACH BREATH. PETE RN ASSISTED THE PATIENT WAS MAXED ON ALL FORMS OF SEDATION AND STILL NEEDED A 2ND PERSON AND RESTRAINTS TO HOLD. STERILE FIELD WAS DIFFICULT TO MAINTAIN DUE TO THE PATIENTS PERFUSE SWEATING WHILE STERILE DRAP WAS APPLIED. AT ONE POINT A NEW KIT WAS OBTAINED AND THE LINE WAS ATTEMPTED WITH A NEW STERILE FIELD. THE 25CM LINE ADVANCED EASILY AFTER THE VEIN WAS CANNULTED. A STAT CHEST XRAY VERIFIED THE LINE IN ADEQUATE POSITION AND THE 2 OTHER CENTRAL LINES WERE REMOVED REQUESTED.
--- NOTE | 2021-01-15 14:01 | NUR ---
RIJ triple lumen placed by GERALDINE Aden vascular team RN and central line placement confirmed. remains npo for trach/peg placement. Dr. Andujar present and spoke with Jacqueline, girlfriend.
--- NOTE | 2021-01-15 14:40 | NUR ---
to surgery with OR crew in icu bed on manager monitoring.
--- NOTE | 2021-01-15 16:15 | NUR ---
RETURNED FROM SURGERY IN ICU BED ACCOMPANIED BY DR. HERNANDEZ AND OR CREW. BOVINA 7.5 TRACH PLACED, OBTURATOR LOCATED IN ROOM ABOVE [employer] CALL SYSTEM. CLAMPED PEG TUBE 20 FR, 3.5CM AT BOLSTER. BOTH TRACH AND PEG WITH SCANT RED BLOOD AT IMMEDIATE INSERTION SITES. GUAZE LIGHTLY APPLIED AT BOTH SITES. ABDOMINAL BINDER INTACT. RESTING COMFORTABLY.
--- NOTE | 2021-01-15 17:15 | NUR ---
recovery completed, Jacqueline, girlfriend at bedside. pt continues to rest quietly.
[2021-01-16] VITALS (93 sets, daily range): BP systolic 81–153; BP diastolic 42–106
[2021-01-16 04:02] LABS: BE(vivo) 1.4 mmol/L (-2 to +3); HCO3 25.3 mmol/L (22.0-26.0); PCO2 37.2 mmHg (35.0-45.0); sO2 89.5 % (92.0-98.0)
[2021-01-16 04:03] LABS: PO2 53.8 mmHg (80.0-100.0)
[2021-01-16 05:30] LABS: HEMATOCRIT 26.3 % (42.0-52.0); HEMOGLOBIN 8.8 gm/dL (14.0-18.0); MCH 30.2 pg (26.0-34.0); MCHC 33.2 g/dL (28.0-37.0); MCV 90.7 fL (80.0-100.0); PLATELET COUNT 497 thou/uL (150-400); RDW 15.5 % (10.5-14.5); WBC 13.8 thou/uL (4.0-11.0)
[2021-01-16 06:12] LABS: ALBUMIN 1.7 g/dL (3.4-5.0); CALCIUM 8.2 mg/dL (8.5-10.1); CREATININE 0.6 mg/dL (0.7-1.3); MAGNESIUM 1.8 mg/dL (1.8-2.4); PHOSPHORUS 3.4 mg/dL (2.5-4.9); POTASSIUM 4.2 mmol/L (3.5-5.1); TOTAL BILIRUBIN 0.9 mg/dL (0.2-1.0); TOTAL PROTEIN 5.9 g/dL (6.4-8.2)
[2021-01-16 06:42] LABS: ABSOLUTE NEUTROPHILS 11.9 thou/uL (1.4-8.2); ATYPICAL LYMPHS 1 %; METAMYELOCYTES 1 %; NUCLEATED RBCS 2 /100WBC
--- NOTE | 2021-01-16 09:54 | NUR ---
chart review. pt had trach/peg placed yesterday. no anticipate dc over the weekend. will cont following as needed for dc needs. sig other cont to visit with bedside nurse and visits.
--- NOTE | 2021-01-16 15:50 | NUR ---
CULTURES OF BLOOD AND SPUTUM SENT TO LAB, SECONDARY TO FEBRILE STATE, PHYSICIANS AWARE. TUBE FEEDING RESUMED. UPDATE GIVEN TO PHYSICIANS. SEDATION TITRATED DOWN, PATIENT QUITE RESTLESS AND ANXIOUS. NURSE UPDATED HIS SPOKES PERSON TODAY AND HELD PHONE TO PATIENTS EAR SO SHE COULD TELL HIM SHE LOVES HIM. PATIENT FOLLOWS COMMANDS. PATIENT NOT PROGRESSING TOWARDS PLAN OF CARE EVIDENCED BY FEBRILE, AND NEED FOR MEDICATIONS TO ASSIST WITH HIS COMFORT.
[2021-01-17] VITALS (86 sets, daily range): BP systolic 90–141; BP diastolic 46–91
[2021-01-17 04:48] LABS: HEMATOCRIT 23.4 % (42.0-52.0); HEMOGLOBIN 7.9 gm/dL (14.0-18.0); MCH 30.6 pg (26.0-34.0); MCHC 33.6 g/dL (28.0-37.0); MCV 91.2 fL (80.0-100.0); RBC 2.57 mil/uL (4.50-6.00); RDW 15.6 % (10.5-14.5); WBC 13.3 thou/uL (4.0-11.0)
[2021-01-17 05:14] LABS: MAGNESIUM 1.7 mg/dL (1.8-2.4); PHOSPHORUS 2.7 mg/dL (2.5-4.9)
[2021-01-17 05:17] LABS: CALCIUM 7.8 mg/dL (8.5-10.1); CREATININE 0.6 mg/dL (0.7-1.3); POTASSIUM 4.3 mmol/L (3.5-5.1)
--- NOTE | 2021-01-17 05:52 | NUR ---
PT RESTLESS OFF AND ON, ABLE TO CALM WITH REASSURANCE AND REPOSITIONING UNTIL APPROXIMATELY 0500, THEN PT BECOMING VERY AGITATED, ATTEMPTING TO GET OUT OF BED, STATING "I WANT OUT OF HERE." RATIONALE AND REASSURANCE NOT HELPFUL, PRN FENTANYL GIVEN AFTER PT STATED HE WAS IN PAIN IN HIS THROAT AND FEET. ABLE TO SLOWLY WEAN DOWN SEDATION.
[2021-01-18] VITALS (25 sets, daily range): BP systolic 105–138; BP diastolic 60–87
--- NOTE | 2021-01-18 05:59 | NUR ---
HAD TROUBLE SLEEPING LAST NIGHT, STATED ANXIETY AND FRUSTRATION. REASSURANCE, REPOSITIONED ATTEMPTED BEFORE XANAX GIVEN. PT COOPERATIVE, BUT DOES NOT LIKE TO HEAR THAT IT WILL TAKE A WHILE FOR HIM TO GET TO BACK TO "NORMAL." RESTED FOR APPROXIMATELY 3 HOURS. ENCOURAGED TO USE ARMS MUCH POSSIBLE. PT IS WILLING TO EXERCISE AND WORK TO GET BETTER
[2021-01-18 06:40] LABS: HEMATOCRIT 24.7 % (42.0-52.0); HEMOGLOBIN 8.4 gm/dL (14.0-18.0); MCH 30.8 pg (26.0-34.0); MCV 90.7 fL (80.0-100.0); RBC 2.72 mil/uL (4.50-6.00); RDW 16.2 % (10.5-14.5); WBC 9.1 thou/uL (4.0-11.0)
[2021-01-18 06:48] LABS: CALCIUM 8.3 mg/dL (8.5-10.1); CREATININE 0.6 mg/dL (0.7-1.3); MAGNESIUM 1.6 mg/dL (1.8-2.4); POTASSIUM 3.6 mmol/L (3.5-5.1)
--- NOTE | 2021-01-18 23:01 | NUR ---
9755 - SIGNIFICANT OTHER (SIMRAN) CALLED FOR UPDATE ON PT. DISCUSSED POC FOR THE NIGHT. SHE STATED SHE PLANS TO COME VISIT IN THE MORNING.
[2021-01-19] VITALS (25 sets, daily range): BP systolic 102–142; BP diastolic 58–87
[2021-01-19 05:47] LABS: HEMOGLOBIN 7.9 gm/dL (14.0-18.0); MCH 30.4 pg (26.0-34.0); MCHC 33.1 g/dL (28.0-37.0); MCV 91.8 fL (80.0-100.0); RBC 2.61 mil/uL (4.50-6.00); RDW 16.2 % (10.5-14.5); WBC 6.9 thou/uL (4.0-11.0)
[2021-01-19 05:53] LABS: CALCIUM 8.1 mg/dL (8.5-10.1); CREATININE 0.6 mg/dL (0.7-1.3)
--- NOTE | 2021-01-19 07:59 | NUR ---
ASSUMED PT CARE AROUND 1900. PT REMAINS ON PRECEDEX GTT. HE HAD PERIODS OF RESTLESSNESS AND ANXIETY DURING THE NIGHT. VSS. TOLERATING VENT WELL. TF VIA PEG TUBE. RESIDUALS 150-250ML. BED BATH GIVEN, THEN PT WAS ABLE TO REST BETTER. REPOSITIONED PT WOULD ALLOW. PT REFUSED PRAFO BOOTS TO PROTECT HEELS FROM SKIN BREAKDOWN. PROGRESSING SLOWLY TOWARD POC GOALS. REPORT GIVEN TO DAY SHIFT RN.
--- NOTE | 2021-01-19 11:51 | NUR ---
chart review. discussed during los and am rounds. got trach 7.5 and peg 20fr last week, still on tpn. he has eyes open, able to mouth the years for dr barker 2020, able to nod to questions for yes and no. [employer] to re visit about medicaid and ss disability apps. will need completed apps and copy before any LTAC will review. will cont following as needed for dc needs.
--- NOTE | 2021-01-19 22:13 | NUR ---
EARLIER THIS EVENING, PT WAS VERY ANXIOUS, DIAPHORETIC, AND INDICATED HE WAS HAVING DIFFICULTY BREATHING. O2 SATS STABLE ON VENT. PT HAD BEEN COUGHING UP LOTS OF SECRETIONS FROM TRACH. SUCTIONED BOTH TRACHEAL AND ORAL SECRETIONS. RT CAME TO BEDSIDE TO HELP WITH VENT MGT. PRECEDEX GTT WAS ON VERY LOW DOSE UPON ASSUMING PT CARE THIS EVENING. INCREASED PRECEDEX GTT RATE AND NOW PT IS RESTING COMFORTABLY IN BED. HE IS NO LONGER DIAPHORETIC OR TACHYPENIC. RR HAS DECREASED FROM 40S TO 20S. TYLENOL GIVEN FOR LOW GRADE TEMP. ORAL CARE PROVIDED. TF RATE INCREASED FROM 20 TO 30 ML. TF GOAL IS 65 ML. CENTRAL LINE DRESSING CHANGED PREVIOUS DRESSING WAS LOOSE DUE TO SWEATY SKIN. PT IS SLEEPING AT THIS TIME. WILL CONTINUE TO MONITOR CLOSELY.
--- NOTE | 2021-01-19 23:01 | NUR ---
620 - PT'S SIGNIFICANT OTHER (SIMRAN) CALLED FOR UPDATE. SHE WAS UPDATED ON PT STATUS AND POC FOR THE NIGHT.
[2021-01-20] VITALS (25 sets, daily range): BP systolic 98–133; BP diastolic 56–80
[2021-01-20 01:59] LABS: URINE BILIRUBIN NEGATIVE (Negative); URINE BLOOD TRACE (Negative); URINE CLARITY CLEAR; URINE COLOR YELLOW; URINE GLUCOSE-RANDOM* NEGATIVE (Negative); URINE KETONES NEGATIVE (Negative); URINE LEUKOCYTES-REFLEX NEGATIVE (Negative); URINE NITRITE-REFLEX NEGATIVE (Negative); URINE PROTEIN (DIPSTICK) TRACE (Negative); URINE UROBILINOGEN 0.2 E.U./dl (0.2-1.0)
[2021-01-20 04:43] LABS: ABSOLUTE NEUTROPHILS 5.2 thou/uL (1.4-8.2); BASOPHILS 0.7 % (0.0-2.0); HEMATOCRIT 23.9 % (42.0-52.0); HEMOGLOBIN 8.1 gm/dL (14.0-18.0); LYMPHOCYTES 11.2 % (24.0-44.0); MCH 30.9 pg (26.0-34.0); MCV 90.9 fL (80.0-100.0); MONOCYTES 5.5 % (1.0-8.0); PLATELET COUNT 303 thou/uL (150-400); POLYS 82.6 % (36.0-66.0); RBC 2.63 mil/uL (4.50-6.00); RDW 16.6 % (10.5-14.5); WBC 6.3 thou/uL (4.0-11.0)
[2021-01-20 04:50] LABS: CALCIUM 8.1 mg/dL (8.5-10.1); CREATININE 0.5 mg/dL (0.7-1.3); POTASSIUM 3.6 mmol/L (3.5-5.1)
--- NOTE | 2021-01-20 05:28 | NUR ---
PT HAS SLEPT MOST OF THE NIGHT. HE DOES HAVE OCCASSIONAL PERIODS OF ANXIETY AND RESTLESSNESS, USUALLY WHEN HE COUGHS AND HAS LOTS OF TRACHEAL SECRETIONS. COMPLETE BED BATH GIVEN. PT HAS HAD 2 LOOSE STOOLS THIS SHIFT. TF INCREASED TO 40ML/HR (65ML GOAL). MAX TF RESIDUAL 250ML. HE HAS ASKED MULTIPLE TIMES WHEN HE IS GOING TO BE DISCHARGED TO REHAB. PROGRESSING SLOWLY TOWARD POC GOALS.
--- NOTE | 2021-01-20 18:32 | NUR ---
SHYAM PROGRESSING TOWARDS PLAN OF CARE. TODAY PATIENT SAT ON EDGE OF BED [facility] PHYSIAL THERAPY ABOUT 2 MINUTES BEFORE PATIENT WAS UNABLE TO TOLERATE. WEANING PRECEDX DOWN TO 0.6MCG/KG/HR GIRLFRHEMA KHALIL AT BEDSIDE TODAY.
[2021-01-21] VITALS (23 sets, daily range): BP systolic 96–127; BP diastolic 58–82
[2021-01-21 04:45] LABS: HEMATOCRIT 24.9 % (42.0-52.0); HEMOGLOBIN 8.5 gm/dL (14.0-18.0); MCH 31.5 pg (26.0-34.0); MCHC 34.1 g/dL (28.0-37.0); MCV 92.4 fL (80.0-100.0); RBC 2.69 mil/uL (4.50-6.00); RDW 16.7 % (10.5-14.5); WBC 7.9 thou/uL (4.0-11.0)
[2021-01-21 05:07] LABS: CALCIUM 8.4 mg/dL (8.5-10.1); CREATININE 0.6 mg/dL (0.7-1.3)
--- NOTE | 2021-01-21 06:37 | NUR ---
PT RESTING SOUNDLY UNTIL ABOUT 0000, WOKE UP AND ASKED FOR BEDPAN. SINCE THAT TIME HAS BEEN SLEEPING OFF AND ON, ANXIOUS IN BETWEEN. REASSURANCE AND DISCUSSION FIRST LINE FOR ANXIETY TX BY THIS RN, ONLY GAVE ATIVAN AFTER PT CONTINUOUSLY BEGAN HITTING SIDE OF BED STATING THAT HE COULD NOT BREATHE, RR IN THE 40'S EVEN AFTER SUCTIONING WITH MINIMAL RETURN. PT VERY CONCERNED ABOUT WHAT WILL HAPPEN NEXT. DOES APPEAR MOTIVATED TO WORK TO GET BETTER.
--- NOTE | 2021-01-21 12:30 | NUR ---
Case discussed in ICU rounds. Pt weaning off precedex, tube feedings at 50 cc/hr with some residuals, Pt sat eob 2 mins but dizzy. He was febrile over night. LTAC referral discussed. [facility] will not consider his referral until his [place] Medicaid is approved. The [employer] liason was able to have him sign his medicaid ulises and ss disablity ulises yesterday. Will follow.
--- NOTE | 2021-01-21 17:01 | NUR ---
PATIENT PROGRESSING IN DISMISSAL GOALS. WEANING PRECEDEX GTT. TUBE FEEDINGS HELD FROM 12-1600 DUE TO RESIDUAL OF 400ML. TUBE FEEDINGS REINITIATED AT 1600. SIGNIFICANT OTHER SIMRAN UPDATED ON PATIENT EVENTS OF THE DAY AND GENERAL UPDATE. PATIENT SAT UP IN BED WITH OCCUPATIONAL THERAPY. WOUND FOUND TO RIGHT SUBCLAVIAN. FROM OLD CENTRAL LINE SIGHT. DR CASH, BENOIT SLADE, WOUND RN, DR LOERA, DR LARIOS ALL NOTIFIED. PICTURE TAKEN.
[2021-01-22] VITALS (11 sets, daily range): BP systolic 110–138; BP diastolic 71–88
[2021-01-22 04:51] LABS: HEMATOCRIT 25.3 % (42.0-52.0); HEMOGLOBIN 8.5 gm/dL (14.0-18.0); MCH 31.3 pg (26.0-34.0); MCHC 33.5 g/dL (28.0-37.0); MCV 93.6 fL (80.0-100.0); RBC 2.7 mil/uL (4.50-6.00); RDW 17.7 % (10.5-14.5); WBC 5.5 thou/uL (4.0-11.0)
[2021-01-22 05:06] LABS: CALCIUM 8.4 mg/dL (8.5-10.1); CREATININE 0.6 mg/dL (0.7-1.3); POTASSIUM 3.8 mmol/L (3.5-5.1)
--- NOTE | 2021-01-22 06:42 | NUR ---
PT MORE ANXIOUS TONIGHT THAN PREVIOUSLY WITH THIS RN. REASSURANCE ATTEMPED, BUT ATIVAN REQUIRED TO KEEP RR BELOW 30 AND HELP KEEP PT FROM COUGHING VIOLENTLY. RESTING OFF AND ON. TOLERATING TURNS, X1 BM.
[2021-01-22 08:16] LABS: BE(vivo) 4.3 mmol/L (-2 to +3); HCO3 27.3 mmol/L (22.0-26.0); PCO2 34.6 mmHg (35.0-45.0); PO2 99.9 mmHg (80.0-100.0); pH 7.515 (7.360-7.450); sO2 98.1 % (92.0-98.0)
--- NOTE | 2021-01-22 11:40 | NUR ---
spoke with gogo and sig other sonu at bedside. both agree on ltac, sonu stated she not been told about moving to different hospital yet. cm education on sule[facility] ltac [facility]. when get [place] ulisse will fax to [facility] leone kept pointing up, he is ready to move out of icu, he wants " therapy therapy"/gogo. no anticipated dc over the weekend. will cont following as needed for dc needs.
--- NOTE | 2021-01-22 21:13 | NUR ---
0830- IN.--VW 1130- IN. SIMRAN AT BEDSIDE.--VW 1700-LOTS OF TIME THRUOUT DAY SPENT W BOTH PT & SIMRAN. ADV. DIRECTIVE DONE BY SEQUINS STRINGER.LOTS OF TEACHING, REINFORCEMENT ON POC,STEPS THAT NEED TO BE TAKEN,PROCESS OF WEANING VENT,COMING OFF TRACH, ETC.PT VERY ANXIOUS TO MOVE OUT OF ICU,START MORE AGGRESSIVE THERAPY & GET HOME. PT USING TONSIL SX WELL. PT MOVING AROUND IN BED MORE,SHIFTING SELF.PT MOVING TOWARD DISCHARGE GOALS.--VW
[2021-01-23 03:55] VITALS: BP 122/84
--- NOTE | 2021-01-23 05:50 | NUR ---
Transferred from ICU last night. Maintaining O2 sat in the upper 90's on 35% FIO2/vent. Suctioned per trach , around trach and orally prn. Periods of anxiety , prn alprazolam given with some help. He has been afebrile. Tolerating tube feeding well with no gastric residual. Oral care given. Right chest foam dressing intact. ONI Phillips called last night to get an update on pt. Repositioned for comfort. He slept fair during the night.
[2021-01-23 07:42] VITALS: BP 136/95
[2021-01-23 11:11] LABS: BE(vivo) 5.1 mmol/L (-2 to +3); HCO3 29.1 mmol/L (22.0-26.0); PCO2 40.1 mmHg (35.0-45.0); pH 7.478 (7.360-7.450); sO2 97.9 % (92.0-98.0)
[2021-01-23 11:35] VITALS: BP 126/89
[2021-01-23 15:14] VITALS: BP 134/93
--- NOTE | 2021-01-23 15:17 | NUR ---
JW reviewed chart and spoke with nursing and attending physician. Pt was transferred to from ICU. Pt with trach/peg in place. Pt continues vent weaning trials. Pt is on IV abx and IV steroids. JW obtained copy of [place]. JW spoke with pt's s/o, Jacqueline, via phone. Provided contact info fo JW and discussed referral to [facility], as info has not yet been sent for review. Jacqueline gave consent to send pt's info to [place]. Discussion regarding level of care provided at LTAC level. Jacqueline verbalized understanding. JW faxed Medicaid ulises and clinical info to [place] [facility] for review. Notified [place] [facility] liaison, Angela of new referral. Info to be reviewed by clinical team. No weekend discharge planned. JW is following to assist as needed with discharge planning.
--- NOTE | 2021-01-23 18:08 | NUR ---
assumed care of pt at 0700. pt alert and oriented to situation, in no acute distress. able to mouth concerns appropriately. copious amts of secretions, sometimes blood tinged. did well on cpap trials throughout the day. worked with therapy, sitting on side of bed. approx 150-200cc tube feed residuals - kept at 50cc/hr - not increased. afebrile throughout the day. tobramycin trough resched for tomorrow since dose already given prior. uneventufl on telemetry.
[2021-01-23 21:08] VITALS: BP 120/75
[2021-01-24 02:53] LABS: HEMATOCRIT 26.6 % (42.0-52.0); HEMOGLOBIN 9.1 gm/dL (14.0-18.0); MCH 31.5 pg (26.0-34.0); MCHC 34.1 g/dL (28.0-37.0); MCV 92.5 fL (80.0-100.0); RBC 2.87 mil/uL (4.50-6.00); RDW 16.8 % (10.5-14.5); WBC 4.6 thou/uL (4.0-11.0)
[2021-01-24 02:55] LABS: CALCIUM 8.6 mg/dL (8.5-10.1); CREATININE 0.6 mg/dL (0.7-1.3); POTASSIUM 3.9 mmol/L (3.5-5.1)
[2021-01-24 04:35] VITALS: BP 116/85
--- NOTE | 2021-01-24 05:58 | NUR ---
Pt.'s girlfriend visited with pt. last night. RT switched vent mode from CPAP to AC at HS.Maintaining O2 sat in the upper 90's up to 100% on 35% FIO2 /vent. Suctioned prn , noted blood tinged sputum around trach at beginning of shift. Right IJ dressing also loose , new dressing applied using sterile technique. He has been repositioned for comfort. Able to turn self with assist. Had a small loose bm this am. Gastric residual of 200-300 ml this shift. TF infusing at 50ml/hr , held for an hour last night. Alprazolam prn given for anxiety x1 but didn't help much. Lorazepam IV given with good results. He rested well and looks more comfortable. Making some progress towards care plan goals.
[2021-01-24 11:16] VITALS: BP 122/82
[2021-01-24 15:38] VITALS: BP 135/93
--- NOTE | 2021-01-24 17:54 | NUR ---
residuals remain in 200ml range. frequent coughing fits. blood tinged sputum from trach sites. no blood noted through inline suction. turned w/ assist. tolerating cpap trials throughout day. good progress toward poc goals.
[2021-01-24 19:12] VITALS: BP 119/86
--- NOTE | 2021-01-25 03:50 | NUR ---
anxious this morning. he is wanting off the ventilator. he has been given alprazolam. repositioned and reassured. He does not explain his want for being off the vent. He has a very flat affect. careplan reviewed.
[2021-01-25 05:32] VITALS: BP 121/73
[2021-01-25 11:08] VITALS: BP 102/70
[2021-01-25 15:41] VITALS: BP 114/74
[2021-01-25 19:19] VITALS: BP 122/86
[2021-01-26 03:48] VITALS: BP 105/69
--- NOTE | 2021-01-26 04:25 | NUR ---
Received pt. on trach shield at 35% and tolerated well. Refusing to go back on the vent at HS , RT spoke with Dr. Flood and wants pt. back on the vent at CPAP mode. RT explained to pt. the reason. Pt. getting very anxious and agitated mouthing words , he doesn't care. Lorazepam given to help calm down pt. with good result. He slept well most of the night and woke up around 0345. Pt. has been on CPAP mode/vent with O2 sat in the mid to upper 90's. Suctioned prn. He requested for his xanax this am and was given to him. Repositioned for comfort. He had a med loose bm per bedpan this am.Tube feeding at 60 ml/hr , still has high gastric residual of 200 ml.No nausea or vomiting.Oral care given. Making some progress towards care plan goals.
[2021-01-26 05:19] LABS: HEMATOCRIT 28.7 % (42.0-52.0); HEMOGLOBIN 9.6 gm/dL (14.0-18.0); MCHC 33.4 g/dL (28.0-37.0); MCV 92.8 fL (80.0-100.0); PLATELET COUNT 354 thou/uL (150-400); RDW 17.3 % (10.5-14.5); WBC 5.6 thou/uL (4.0-11.0)
[2021-01-26 05:38] LABS: ALBUMIN 2.3 g/dL (3.4-5.0); CALCIUM 8.6 mg/dL (8.5-10.1); CREATININE 0.6 mg/dL (0.7-1.3); POTASSIUM 3.5 mmol/L (3.5-5.1); TOTAL BILIRUBIN 0.5 mg/dL (0.2-1.0); TOTAL PROTEIN 6.4 g/dL (6.4-8.2)
[2021-01-26 06:03] LABS: ABSOLUTE NEUTROPHILS 3.9 thou/uL (1.4-8.2); PLATELET ESTIMATE NORMAL
[2021-01-26 07:32] VITALS: BP 122/86
[2021-01-26 12:11] VITALS: BP 121/86
[2021-01-26 15:16] VITALS: BP 118/84
--- NOTE | 2021-01-26 18:29 | NUR ---
ASSUMED PATIENT CARE AT 0700. A/O X2. ANXIOS. ATIVAN GIVEN NEED. SUCTION NEEDS. SUN BOO'D. TOLERATED ON 35% FIO2 VIS TRACH. SLOWLY TOWARDS POC GOALS.
[2021-01-26 20:26] VITALS: BP 128/86
[2021-01-27 02:52] VITALS: BP 102/78
--- NOTE | 2021-01-27 06:39 | NUR ---
PT WANTS TO BE SUCTION FREQUENTLY. SECRETIONS ARE BLOOD TINGED. EXTERNAL CATH IN PLACE. VSS OVERNIGHT AND 02 SATURATIONS WERE IN THE 90'S. ISOLATION PRECAUTIONS IN PLACE.
[2021-01-27 07:41] VITALS: BP 106/68
--- NOTE | 2021-01-27 11:17 | NUR ---
JW reviewed chart and spoke with nursing and attending physician. Pt continues vent weaning trials. Pt has trach and peg in placed. Pt is on IV abx and IV steroids. JW contacted [facility] lia[facility], who states they are following pt and cannot approve him for admission until his [place] is active. JW is following to assist as needed with discharge planning.
[2021-01-27 11:23] VITALS: BP 105/67
[2021-01-27 20:00] VITALS: BP 121/83
--- NOTE | 2021-01-28 03:54 | NUR ---
PROGRESS PT ALERT AND ORIENTED, VSS. TRACH SHIELD AT 35%, PT CLEARING AIRWAY WITH COUGH, LARGE AMOUNT OF THIN CLEAR BLOOD TINGED SPUTUM. TUBE FEEDING AT 65CC/HR NO RESIDUAL NOTED 200 CC H2O FLUSH Q6HRS ORDERED. PT REFUSED BIPAP TRIAL AND LEFT ON TRACH SHIELD.CONDOM CATHETER IN PLACE DRAINING CLEAR DARK YELLOW URINE. ACCUCHECKS AND SSI CONTINUE Q6HRS. RIGHT TIPLE LUMEN IJ INTACT WITH GOD BLOOD RETURN AND FLUSHES WITHOUT DIFFICULTY. TELE INTACT READING SR/ST WITH RAES IN 90'S TO MID 100'S. SCD'S IN PLACE PT REQUESTED ATIVAN FOR ANXIETY GIVEN ORDERED.
[2021-01-28 06:01] VITALS: BP 111/68
[2021-01-28 08:38] VITALS: BP 117/84
[2021-01-28 11:41] VITALS: BP 109/71
--- NOTE | 2021-01-28 13:50 | NUR ---
SW reviewed chart and spoke with nursing and attending physician. Pt remains on IV abx and IV steroids. Pt continuing vent weaning trials. Pt had trach/peg placed on 01/15/2021. SW received call from pt's s/oJacqueline. SW returned call and left voice message. SW is following to assist as needed with discharge planning.
[2021-01-28 15:37] VITALS: BP 102/59
--- NOTE | 2021-01-28 18:59 | NUR ---
late entry notified by respiratory therapy that pt refused to wear bipap 01/27/21 at 2100.
--- NOTE | 2021-01-28 19:05 | NUR ---
DAY SHIFT RECAP. PT HAD IMPROVED DAY FROM YESTERDAY. LESS SUCTIONING NEEDED, PT WAS ABLE TO COUGH UP SECRETIONS TO UPPER AIRWAY AND USE YAUNKER. PT SPENT A GOOD PORTION OF DAY IN CARDIAC CHAIR, THEN REQUESTED BACK TO BED AND REQUESTED ROOM QUIET FOR A NAP. PEG FEEDING AT GOAL.
[2021-01-28 19:35] VITALS: BP 111/77
--- NOTE | 2021-01-28 23:42 | NUR ---
RT IN ROOM MULTIPLE TIMES TO ATTEMPT TO PLACE THE PT ON BIPAP HE REFUSED EACH TIME. PT EDUCATED ON BENEFITS OF WEARING AND HE STATED HE DOES NOT WANT TO WEAR IT.
--- NOTE | 2021-01-29 03:43 | NUR ---
PROGRESS PT A/O X4. NOT OOB THIS SHIFT. VSS. TRACH INTACT WITH TRACH SHIELD IN PLACE O2 AT 15 LITERS AND 35% HUMIDITY. PT REQUESTING ATIVAN FREQUENTLY THIS SHIFT. PEG TUBE INTACT WITH TF VITAL AF AT 65CC/HR NO RESIDUAL NOTED AND 200CC H20 FLUSH Q6HRS. RIGHT JUGULAR TRIPLE LUMEN IJ INTACT HAS GOOD BLOOD RETURN BUT FLUSHES SLUGGISHLY ALL PORTS. EXTERNAL CATHETER IN PLACE DRAINING CLEAR YELLOW URINE. PT REFUSED BIPAP RT MADE MULTIPLE ATTEMPTS TO ENCOURAGE HIM TO WEAR. SECRETIONS CLEAR THIN AND EASILY EXPELLED BY PT. DRESSING TO RIGHT CHEST REPLACED WOUND CLEANSED, BOTH FEET WITH NECROTIC TOES CLEANSED AND PAINTED WITH BETADINE, ORAL CARE Q4 HRS CONTINUE POC.
[2021-01-29 04:53] VITALS: BP 108/76
[2021-01-29 05:53] LABS: HEMATOCRIT 31.1 % (42.0-52.0); HEMOGLOBIN 10.3 gm/dL (14.0-18.0); MCHC 33.2 g/dL (28.0-37.0); MCV 93.2 fL (80.0-100.0); RBC 3.33 mil/uL (4.50-6.00); WBC 6.3 thou/uL (4.0-11.0)
[2021-01-29 06:05] LABS: CALCIUM 8.6 mg/dL (8.5-10.1); CREATININE 0.7 mg/dL (0.7-1.3); POTASSIUM 3.6 mmol/L (3.5-5.1)
[2021-01-29 08:12] VITALS: BP 115/73
[2021-01-29 12:23] VITALS: BP 118/68
--- NOTE | 2021-01-29 13:25 | NUR ---
RN ASSUMED PT'S CARE AT 0700-1300PM, PT IS ON TRACH MASK WITH O2 35% TO KEEP O2SAT AT 92-95%, PT CAN FOLLOW ALL COMMANDS, PT NEEDS MEDICATIONS TO MANAGE HIS ANXIETY, PT IS TOLERATED HER TUBE FEEDING AT 65ML/HR, PT DENIES PAIN AND SOB AT THIS TIME.
--- NOTE | 2021-01-29 15:06 | NUR ---
JW reviewed chart and spoke with nursing and attending physician. Pt is on trach shield and able to participate with therapy services. [facility] consulted today to evaluate pt for inpt acute rehab. JW spoke with pt's significant other, Jacqueline, via phone. Long discussion regarding status of pt's Medicaid application and discharge plans. JW explained 5N consult and possible placement at [facility] SNF/LTC. JW had spoken with Evi in admissions at [facility], who states they would review pt's info for admission, as they are able to accept new trach pts and Medicaid pending pts. JW explained the differences in the level of care provided at SNF/LTC v inpt acute rehab. Eventual discharge plan is for pt to return home. JW discussed with [facility] rehabilitation therapy technician. JW also discussed with Director of Case Mgmt to see if it would be an option for pt to be considered for admission to the inpt acute rehab unit at [facility], which would be closer to family. Pt was initially transferred to [facility] from [facility]. Awaiting input from [facility] at this time. JW is following to assist as needed with discharge planning.
[2021-01-29 15:36] VITALS: BP 117/79
--- NOTE | 2021-01-29 18:09 | NUR ---
ASSUMED PATIENT CARE AT 1200. A/O 2-3. FREQUENTLY ASKING ATIVAN. ONLY SIT ON CHAIR 5 MINS WITH PT. TOLERATED TF. VSS. SLOWLY TOWARDS POC GOALS.
--- NOTE | 2021-01-30 00:38 | NUR ---
PT TRACH IS BLEEDING PROFUSELY DOESNT APPEAR TO BE COMING FROM INSERTION SITE COUGHING UP LARGE AMOUNTS AND LARGE AMOUNTS BEING DEEP SUCTIONED OUT. PAGEBraden ON RETURN CALL HE ADVISED TO CALL SURGEON. SURGEON RETURNED PAGE STATED TO APPLY PRESSURE DRESSING AND READJUST BALLOON. RT UP READJUSTED BALLOON , SANTI [place]STANO IN TO ASSESS AND ASSISTED IN APPLYING PRESSURE DRESSING WHICH HAD NO EFFECT. IN AND ASSESSED. AUTO OVERHAULER IN TO ASSESS ADVISED TO PAGE DR.STROM FRANCIS WITH NO RETURN CALL TO REPAGE AT THIS TIME.
--- NOTE | 2021-01-30 01:10 | NUR ---
RE-PAGED TO MONITOR HGB PER .
[2021-01-30 05:21] LABS: ABSOLUTE NEUTROPHILS 4.3 thou/uL (1.4-8.2); BASOPHILS 0.7 % (0.0-2.0); EOSINOPHILS 0.2 % (0.0-3.0); HEMATOCRIT 29.8 % (42.0-52.0); LYMPHOCYTES 33.8 % (24.0-44.0); MCH 31.4 pg (26.0-34.0); MCHC 33.7 g/dL (28.0-37.0); MCV 93.2 fL (80.0-100.0); MONOCYTES 8.5 % (1.0-8.0); PLATELET COUNT 404 thou/uL (150-400); POLYS 56.8 % (36.0-66.0); RDW 16.8 % (10.5-14.5); WBC 7.6 thou/uL (4.0-11.0)
[2021-01-30 05:38] LABS: CALCIUM 8.8 mg/dL (8.5-10.1); CREATININE 0.6 mg/dL (0.7-1.3); POTASSIUM 3.5 mmol/L (3.5-5.1)
[2021-01-30 07:43] VITALS: BP 109/78
--- NOTE | 2021-01-30 10:17 | NUR ---
Please weigh pt daily.
[2021-01-30 11:34] VITALS: BP 110/76
[2021-01-30 13:53] LABS: BE(vivo) 3.1 mmol/L (-2 to +3); HCO3 26.3 mmol/L (22.0-26.0); PCO2 35.5 mmHg (35.0-45.0); PO2 54.4 mmHg (80.0-100.0); pH 7.488 (7.360-7.450); sO2 90.8 % (92.0-98.0)
--- NOTE | 2021-01-30 14:33 | NUR ---
"JW reviewed chart and spoke with nursing and attending physician. Pt remains on trach shield. Pt is on IV abx and IV steroids. Case to be discussed with [facility] and [place] administration regarding possibility of pt being admitted to the inpt acute rehab at [place]. JW met with pt and s/o, Jacqueline at the bedside. Jacqueline states she was told that pt is being moved to [place]. Jacqueline was upset that she was not informed of this decision. JW explained that the situation is being discussed with both hospitals and that a decision has not yet been made if this would be an option. JW did discuss that if [place] acute rehab is not an option, pt would be able to do rehab at [facility]. Jacqueline verbalized understanding and would like to know as soon as a decision has been made. [place] would be closer to Jacqueline and their family. Jacqueline has a phone interview this afternoon with [employer]. [employer] spoke with Jacqueline regarding the interview. JW also discussed with Orly with [employer]. Copies of pt's certificate and confirmatino of SSD application letter faxed to [employer] for review. JW asked nursing to place sign on pt's door to have visitors check in with staff per Jacqueline's request. No weekend discharge planned. JW is following to assist as needed with discharge planning."
[2021-01-30 15:49] VITALS: BP 111/80
[2021-01-30 17:21] LABS: URINE BILIRUBIN NEGATIVE (Negative); URINE BLOOD NEGATIVE (Negative); URINE CLARITY CLEAR; URINE COLOR YELLOW; URINE GLUCOSE-RANDOM* NEGATIVE (Negative); URINE KETONES NEGATIVE (Negative); URINE LEUKOCYTES NEGATIVE (Negative); URINE NITRITE NEGATIVE (Negative); URINE PROTEIN (DIPSTICK) TRACE (Negative); URINE SPECIFIC GRAVITY 1.025 (1.005-1.035); URINE UROBILINOGEN 0.2 E.U./dl (0.2-1.0)
--- NOTE | 2021-01-30 18:15 | NUR ---
CARE ASSUMED THIS AM, PT ALERT AND ORIENTED X4, ANXIOUS TIMES, ANTIVAN GIVEN PER ORDER. NO VISIBLE BLEEDING AROUND TRACH LIKE WAS REPORTED BY PM NURSE LASTNIGHT. PEG TUBE IN PLACE, TF RUNNING PER ORDER, WATER FLUSHES GUVEN PER ORDERED. REPOSITION NEEDED. GAVE PT A BATH THIS. PT SIGN. OTHER VISITING UPDATED ABOUT PT CARE. DR. LIRIANO CALLED ABOUT CRITICAL PO2, NO NEW ORDERS GIVEN, STATED TO PUT PT ON BIPAP NEED. FALL PRECAUTIONS AND SPECIAL CONTACT PRECAUTIONS IN PLACE. WILL CONTINUE TO MONITOR
[2021-01-30 20:12] VITALS: BP 108/76
--- NOTE | 2021-01-31 01:54 | NUR ---
PT ALERT AND ORIENTED X4. VSS AFEBRILE. LUNGS SLIGHTLY COARSE. TRACH SHEILD INTACT. NO BLEEDING NOTED SO FAR. HRR SR ON MONITOR. TF INFUSING WITHOUT DIFFICULTY. RESIDUALS WNL. TURNING PT Q 2 HRS. ATIVAN GIVEN FOR ANXIETY X2 SO FAR. PT SLEEPING PRESENTLY. NO C/O PAIN. NO S/S DISTRESS.
[2021-01-31 04:02] VITALS: BP 91/59
[2021-01-31 05:20] LABS: HEMOGLOBIN 10.1 gm/dL (14.0-18.0); MCH 31.5 pg (26.0-34.0); MCHC 33.8 g/dL (28.0-37.0); MCV 93.3 fL (80.0-100.0); RBC 3.21 mil/uL (4.50-6.00); RDW 17.1 % (10.5-14.5); WBC 7.1 thou/uL (4.0-11.0)
[2021-01-31 05:45] LABS: CALCIUM 8.6 mg/dL (8.5-10.1); CREATININE 0.6 mg/dL (0.7-1.3); POTASSIUM 3.3 mmol/L (3.5-5.1)
[2021-01-31 07:49] VITALS: BP 100/66
[2021-01-31 11:36] VITALS: BP 104/67
--- NOTE | 2021-01-31 13:50 | NUR ---
ASSUMED PT CARE AT SHIFT CHANGE, PT ALERT AND ABLE TO SPEAK IN A WHISPER. PT STATED HIS ANXIETY WAS VERY HIGH AT BEGINNING OF SHIFT. PT S/O SIMRAN APPROVED 2 NEW VISITORS FOR PT, SISTER AND BROTHER.
[2021-01-31 15:32] VITALS: BP 100/68
[2021-01-31 20:45] VITALS: BP 101/69
--- NOTE | 2021-01-31 21:36 | NUR ---
PT ALERT AND ORIENTED X4. ANXIOUS. IMPATIENT AT TIMES. MEDICATED WITH ATIVAN , SEROQUEL, AND XANAX PRN. PRESENTLY PT IS RESTING QUIETLY. UNLABORED ON TRACH MASK 40%. PT REPOSITIONED. RAMAKRISHNA CARE AND ORAL CARE DONE. TF INFUSING WITHOUT DIFFICULTY. NO S/S DISTRESS.
[2021-02-01 04:54] VITALS: BP 101/70
--- NOTE | 2021-02-01 05:50 | NUR ---
PT ALERT AND ORIENTED X4. VSS . UNLABORED ON TRACH MASK 40%. ATIVAN GIVEN FOR ANXIETY. NO CHANGES IN ASSESSMENT.
[2021-02-01 07:53] VITALS: BP 95/64
[2021-02-01 11:40] VITALS: BP 108/72
[2021-02-01 15:35] VITALS: BP 103/65
[2021-02-01 21:00] VITALS: BP 110/74
--- NOTE | 2021-02-01 23:32 | NUR ---
PT ALERT AND ORIENTED X4. VSS 99T. HRR SR-ST ON MONITOR. ANXIOUS. MEDICATED WITH SEROQUEL AND ATIVAN. RAMAKRISHNA AND ORAL CARE DONE. PT REPOSITIONED . WOUND CARE DONE ORDERED. TOES ARE NECROTIC. PAINTED WITH BETADINE. TF RESIDUALS WNL. NO S/S DISTRESS ON TS 40%. BED DOWN CALL LIGHT IN REACH. BED ALARM IS ON.
[2021-02-02 04:45] VITALS: BP 99/64
[2021-02-02 05:26] LABS: CALCIUM 8.5 mg/dL (8.5-10.1); CREATININE 0.7 mg/dL (0.7-1.3); POTASSIUM 3.8 mmol/L (3.5-5.1)
--- NOTE | 2021-02-02 05:48 | NUR ---
PT PROGRESSING SLOWLY TOWARDS D/C GOALS. BP MODERATLY LOW THIS AM IN THE 90'S. SEE VS. ASYMPTOMATIC. XANAX AND ATIVAN HAVE BEEN GIVEN FOR ANXIETY . ENCOURAGED PT TO TURN Q 2 HRS. HE IS USUALLY COMPLIANT. DENIED PAIN. APIXABAN RESUMED TONIGHT. PT ANXIOUS TO HAVE SPEECH THERAPY COME WORK WITH HIM TODAY. EXPLAINED TO PT I CAN NOT CALL THEM RIGHT NOW TO COME SEE HIM BUT WILL ASK DAY SHIFT NS TO F/U [facility] REQUEST. PT C/O HE IS BORED LYING IN BED,
--- NOTE | 2021-02-02 06:04 | NUR ---
BMP SENT TO LAB TO F/U WITH k LEVEL. IT IS NOW UP TO 3.8.
[2021-02-02 07:49] VITALS: BP 100/65
[2021-02-02 11:14] VITALS: BP 99/61
[2021-02-02 15:50] VITALS: BP 99/63
--- NOTE | 2021-02-02 15:54 | NUR ---
SW reviewed chart and spoke with nursing and attending physician. Pt remains on trach shield. Pt has trach and peg in place. Pt to have swallow eval today. JW received call from [facility] acute outreach liaison at [facility]. SW returned call and left message. [facility] to review pt's info for possible admission to the [facility]hab unit at [facility]. JW is following to assist as needed with discharge planning.
[2021-02-02 19:45] VITALS: BP 104/69
--- NOTE | 2021-02-02 23:39 | NUR ---
PT C/O FEELING ANXIOUS. PRN ANXIETY MEDICATION GIVEN WITH SOME RELIEF. VSS. NO S/S RESPIRATORY DISTRESS. TF VIA PEG WITH NO RESIDUAL NOTED. FALL PRECAUTIONS IN PLACE. REPORT GIVEN TO ONCOMING NURSE AROUND 2229. PT IS PROGRESSING TOWARD POC GOALS.
[2021-02-03 06:10] VITALS: BP 102/62
[2021-02-03 07:41] VITALS: BP 108/67
[2021-02-03 11:41] VITALS: BP 104/70
[2021-02-03 15:31] VITALS: BP 107/72
[2021-02-03 20:17] VITALS: BP 110/73
[2021-02-04 05:11] VITALS: BP 112/69
[2021-02-04 07:19] LABS: HEMATOCRIT 27.9 % (42.0-52.0); HEMOGLOBIN 9.2 gm/dL (14.0-18.0); MCH 30.9 pg (26.0-34.0); MCHC 33.1 g/dL (28.0-37.0); MCV 93.3 fL (80.0-100.0); RBC 2.99 mil/uL (4.50-6.00); RDW 16.4 % (10.5-14.5); WBC 7.8 thou/uL (4.0-11.0)
[2021-02-04 07:30] LABS: CALCIUM 8.9 mg/dL (8.5-10.1); CREATININE 0.8 mg/dL (0.7-1.3); POTASSIUM 3.9 mmol/L (3.5-5.1)
--- NOTE | 2021-02-04 08:04 | NUR ---
PROGRESS PT A/O X4 , LUNGS CLEAR ON ROOM AIR TRACH WITH CUFF DEFLATED AND SPEAKING VALVE ON EXPEELING SECRETIONS ORALLY. DRANK 500 IN NECTAR THICK LIQUIDS AND ATE 6 SMALL CUPS OF YOGURT. WAS ABLE TO SIT UP ON SIDE OF BED WITHOUT ANY ASSISTANCE. VOIDING PER URINAL AND PERFORMING MANY HIS ADL'S HE CAN. PT IS EXCITED TO BE ALLOWED TO EAT AND FEELS HOPEFUL THAT HE WILL GET WELL ENOUGH TO GO HOME. I ENCOURAGED PT TO REALLY CONSIDER REHAB THEY WOULD BE THE FASTEST TRACK TO GETTING HOME HE IS SO MOTIVATED AND THE THERAPIES WOULD FACILITATE HIS PROGRESSION.
[2021-02-04 08:38] VITALS: BP 117/71
--- NOTE | 2021-02-04 09:38 | NUR ---
Pt has lost a severe amount of weight throughout acute illness. Starting to eat but not adequate to meet needs. Recommend continue supplemental tube feeds and run 70ml/hr x 12 hr.
--- NOTE | 2021-02-04 13:14 | NUR ---
JW reviewed chart and spoke with nursing and attending physician. Pt is medically stable for discharge to [facility]. JW spoke with Alessandra in admission for Acute Rehab, who states she needs confirmation from the rehab physician, but they should be able to accept pt later today. Pt has been off O2 overnight and able to participate with cares. JW met with pt at bedside to provide update. Pt is alert/orientated and states that he is ready for rehab and would like to go today if possible. JW explained that [facility] will notify SW about bed availability and time of discharge. Pt verbalized understading. JW also spoke with pt's girlfriend, Jacqueline, via phone to provide update. Jacqueline is aware and agreeable with plan. Awaiting finalized discharge orders/summary and bed confirmation at [facility]. JW is following to finalize discharge plan.
[2021-02-04] MEDS ORDERED: PERIDEX 0.12%473 M1 MUCOUS MEM (16:06)
[2021-02-04] MEDS ORDERED: BENADRYL ALLERG25 MG PO (16:06)
[2021-02-04] MEDS ORDERED: BISACODYL10 MG RECTAL (16:06)
[2021-02-04] MEDS ORDERED: CLARITIN10 M2 PER TUBE (16:06)
[2021-02-04] MEDS ORDERED: XANAX1 MG PER TUBE (16:06)
[2021-02-04] MEDS ORDERED: ELIQUIS5 MG PER TUBE (16:06)
[2021-02-04] MEDS ORDERED: IPRAT-ALBUT 0.5-3 ML INH (16:06)
[2021-02-04] MEDS ORDERED: PROTONIX40 M2 PO (16:06)
[2021-02-04] MEDS ORDERED: METOCLOPRAMIDE 55 M1 PO (16:06)
[2021-02-04] MEDS ORDERED: SEROQUEL 25 MG25 M1 PER TUBE (16:06)
[2021-02-04] MEDS ORDERED: HUMALOG KW100 UNIT/1 SUBQ (16:12)
--- NOTE | 2021-02-04 18:32 | NUR ---
RN ASSUMED PT'S CARE AT 0700-1810PM, PT IS A&OX4, PT'S TRACH HAS CAPPED WITH SPEAKING VALV AT ROOM AIR, PT 'S VS ARE STABLE, PT DENIES SOB AND PAIN, PT HAS MEDICATIONS FOR ANXIETY, PT IS TOLERATED HIS DIET , AND EATING WELL, PT'S TUBE FEEDING HAS CHANGED TO RUN AT 1800-0600PM, RN RECEIVED ORDER TO DC PT TO [facility] , TRANSPORTATION CARPET REPAIRER PT AT 1810PM, RN HAS GIVING REPORT TO NURSE, AND HAS NOTIFIED PT'S FAMILY.
== END 2021-02-04 18:07 | DRG 3 ==
LOC: ICU 05:57 → 3W 08:04 → ICU 08:04 → 3W 01-22 21:45
PROVIDERS: Hospitalist; Internal Medicine; Internal Medicine Gastroenterology; Internal Medicine Pulmonary Disease; Nurse Practitioner; Nurse Practitioner Adult Health; Nurse Practitioner Family; Pediatrics; Specialist; Surgery; ADMIT Hospitalist; ATTEND Hospitalist
PROC: XW033E5 Introduction of Remdesivir Anti-infective into Peripheral Vein, Percutaneous Approach, New Technology Group 5 (ICD-10-PCS; 2020-12-22)
PROC: 0DTJ4ZZ Resection of Appendix, Percutaneous Endoscopic Approach (ICD-10-PCS; 2020-12-22)
PROC: 0BH17EZ Insertion of Endotracheal Airway into Trachea, Via Natural or Artificial Opening (ICD-10-PCS; 2020-12-22)
PROC: 5A1955Z Respiratory Ventilation, Greater than 96 Consecutive Hours (ICD-10-PCS; 2020-12-22)
PROC: 4A133J1 Monitoring of Arterial Pulse, Peripheral, Percutaneous Approach (ICD-10-PCS; 2021-01-02)
PROC: 03HY32Z Insertion of Monitoring Device into Upper Artery, Percutaneous Approach (ICD-10-PCS; 2021-01-02)
PROC: 0B9F8ZX Drainage of Right Lower Lung Lobe, Via Natural or Artificial Opening Endoscopic, Diagnostic (ICD-10-PCS; 2021-01-02)
PROC: 4A133B1 Monitoring of Arterial Pressure, Peripheral, Percutaneous Approach (ICD-10-PCS; 2021-01-02)
PROC: 02HV33Z Insertion of Infusion Device into Superior Vena Cava, Percutaneous Approach (ICD-10-PCS; 2021-01-03)
PROC: 0DH63UZ Insertion of Feeding Device into Stomach, Percutaneous Approach (ICD-10-PCS; principal; 2021-01-15)
PROC: 0B110F4 Bypass Trachea to Cutaneous with Tracheostomy Device, Open Approach (ICD-10-PCS; principal; 2021-01-15)
PROC: 02HV33Z Insertion of Infusion Device into Superior Vena Cava, Percutaneous Approach (ICD-10-PCS; principal; 2021-01-15)
PROC: 5A09357 Assistance with Respiratory Ventilation, Less than 24 Consecutive Hours, Continuous Positive Airway Pressure (ICD-10-PCS; 2021-01-23)
PROC: 5A09357 Assistance with Respiratory Ventilation, Less than 24 Consecutive Hours, Continuous Positive Airway Pressure (ICD-10-PCS; 2021-01-24)
PROC: 5A09357 Assistance with Respiratory Ventilation, Less than 24 Consecutive Hours, Continuous Positive Airway Pressure (ICD-10-PCS; 2021-01-25)
DX: A41.89 Other specified sepsis (principal); R65.21 Severe sepsis with septic shock; U07.1 COVID-19; J12.82 Pneumonia due to coronavirus disease 2019; K72.00 Acute and subacute hepatic failure without coma; K35.33 Acute appendicitis with perforation, localized peritonitis, and gangrene, with abscess; J80 Acute respiratory distress syndrome; N17.0 Acute kidney failure with tubular necrosis; E43 Unspecified severe protein-calorie malnutrition; J69.0 Pneumonitis due to inhalation of food and vomit; J15.211 Pneumonia due to Methicillin susceptible Staphylococcus aureus; N39.0 Urinary tract infection, site not specified; E87.1 Hypo-osmolality and hyponatremia; K56.7 Ileus, unspecified; J93.9 Pneumothorax, unspecified; E87.0 Hyperosmolality and hypernatremia; F15.20 Other stimulant dependence, uncomplicated; I82.622 Acute embolism and thrombosis of deep veins of left upper extremity; D68.69 Other thrombophilia; R68.0 Hypothermia, not associated with low environmental temperature; J98.2 Interstitial emphysema; E87.8 Other disorders of electrolyte and fluid balance, not elsewhere classified; E80.6 Other disorders of bilirubin metabolism; F10.20 Alcohol dependence, uncomplicated; K80.50 Calculus of bile duct without cholangitis or cholecystitis without obstruction; E87.6 Hypokalemia; E83.42 Hypomagnesemia; D64.9 Anemia, unspecified; E78.1 Pure hyperglyceridemia; I99.8 Other disorder of circulatory system; L97.529 Non-pressure chronic ulcer of other part of left foot with unspecified severity; L97.519 Non-pressure chronic ulcer of other part of right foot with unspecified severity; Z68.21 Body mass index [BMI] 21.0-21.9, adult
CPT/HCPCS: 10078; 10779; 10879; 50101; 50331; 50386; 50403; 50411; 50555; 50558; 50739; 50740; 52265; 53307; 53310; 53312; 54022; 54118; 56462; 56525; 56526; 58574; 58585; 62110; 62900; 65040